=== PATIENT | female | born 1950 | race Caucasian/White ===

== ENCOUNTER → 2016-11-11 | Outpatient (CLI) | payer MEDICARE, OTHER ==
[2016-11-11 07:58] LABS: ALT 27 U/L (9-52); AST 21 U/L (14-36); Alkaline Phosphatase 55 U/L (38-126); Amylase 72 U/L (30-110); Anion Gap 8 mmol/L; Blood Urea Nitrogen 23 mg/dL (7-17); Calcium 10.1 mg/dL (8.4-10.2); Carbon Dioxide 28 mmol/L (22-30); Chloride 103 mmol/L (98-107); Glucose 108 mg/dL (74-99); Non-African American GFR(MDRD) 57 (>60 ml/min/1.73 sqM); Potassium 5.7 mmol/L (3.5-5.1); Sodium 139 mmol/L (137-145); Total Bilirubin 0.7 mg/dL (0.2-1.3); Total Protein 7.7 g/dL (6.3-8.2)
[2016-11-11 08:25] LABS: Basophils % (A) 1 %; CH 29.9; Eosinophils # (A) 0.2 k/uL (0-0.7); Eosinophils % (A) 4 %; HCT 41.8 % (34.0-46.0); HDW 2.37; HGB 13.6 gm/dL (11.4-16.0); Luc # (Auto) 0.07; Luc % (Auto) 2; Lymphocytes # (A) 1.2 k/uL (1.0-4.8); Lymphocytes % (A) 28 %; MCH 29.6 pg (25.0-35.0); MCHC 32.6 g/dL (31.0-37.0); Mean Platelet Volume 8.7; Monocytes # (A) 0.2 k/uL (0-1.0); Monocytes % (A) 6 %; Neutrophils # (A) 2.4 k/uL (1.3-7.7); Neutrophils % (A) 60 %; RDW 12.8 % (11.5-15.5); WBC 4.1 k/uL (3.8-10.6)
--- NOTE | 2016-11-11 08:59 | US ---
EXAMINATION TYPE: US duplex aorta DATE OF EXAM: 11/11/2016 7:54 AM COMPARISON: CLINICAL HISTORY: R09.89 Abdominal pulsatile mass,R10.9,. No HTN, non smoker. EXAM MEASUREMENTS: Abdominal Aorta: Proximal: 2.0 x 2.2 cm Mid: 1.5 x 1.9 cm Distal: 1.5 x 1.8 cm Bifurcation: Right = 1.0 x 1.0 cm Left- 1.2 x 1.0 cm No AAA seen IMPRESSION: No evidence for abdominal aortic aneurysm.
[2016-11-11 11:58] LABS: Erythrocyte Sedimentation Rate 7 mm/hr (0-20)
== END | disposition home or self-care (01) ==
LOC: RADUSWWP 07:21 → EEVIPCON 07:40
PROVIDERS: ATTEND Physician Assistant
DX: R09.89 Other specified symptoms and signs involving the circulatory and respiratory systems (principal); R10.9 Unspecified abdominal pain
CPT/HCPCS: 80053; 82150; 83690; 85025; 85652; 93979

== ENCOUNTER 2016-11-12 22:30 | Emergency (ER) | payer MEDICARE, OTHER ==
[2016-11-13 02:05] LABS: Basophils % (A) 1 %; CHCM 33.7; Eosinophils # (A) 0.1 k/uL (0-0.7); Eosinophils % (A) 3 %; HCT 40.2 % (34.0-46.0); HDW 2.37; HGB 13.5 gm/dL (11.4-16.0); Luc # (Auto) 0.09; Luc % (Auto) 2; Lymphocytes # (A) 1.4 k/uL (1.0-4.8); Lymphocytes % (A) 34 %; MCHC 33.5 g/dL (31.0-37.0); MCV 89.3 fL (80.0-100.0); Mean Platelet Volume 8.9; Monocytes # (A) 0.3 k/uL (0-1.0); Monocytes % (A) 7 %; Neutrophils # (A) 2.2 k/uL (1.3-7.7); Neutrophils % (A) 53 %; RDW 12.6 % (11.5-15.5); WBC 4.2 k/uL (3.8-10.6); WBC (Perox) 4.01
[2016-11-13 02:06] LABS: ALT 30 U/L (9-52); AST 21 U/L (14-36); Alkaline Phosphatase 55 U/L (38-126); Amylase 56 U/L (30-110); Anion Gap 10 mmol/L; Blood Urea Nitrogen 13 mg/dL (7-17); Calcium 10.3 mg/dL (8.4-10.2); Carbon Dioxide 27 mmol/L (22-30); Chloride 102 mmol/L (98-107); Glucose 88 mg/dL (74-99); Non-African American GFR(MDRD) >60 (>60 ml/min/1.73 sqM); Partial Thromboplastin Time 23.8 sec (22.0-30.0); Potassium 4.3 mmol/L (3.5-5.1); Prothrombin Time 10.3 sec (9.0-12.0); Sodium 139 mmol/L (137-145); Total Bilirubin 0.7 mg/dL (0.2-1.3); Total Protein 7.4 g/dL (6.3-8.2)
[2016-11-13 02:08] LABS: Appearance,Urine Clear (Clear); Bilirubin,Urine Negative (Negative); Glucose,Urine (UA) Negative (Negative); Ketones,Urine Trace (Negative); Leukocyte Esterase,Urine Small (Negative); Nitrite,Urine Negative (Negative); Particle Count 835; Protein,Urine Negative (Negative); Specific Gravity,Urine 1.003 (1.001-1.035); UA Billing (MACRO vs. MICRO) MICRO; Urobilinogen,Urine <2.0 mg/dL (<2.0); WBC,Urine <1 /hpf (0-5)
--- NOTE | 2016-11-13 04:09 | CT ---
EXAM: CT ABDOMEN + PELVIS With Contrast DOSE: CTDI is 19.6 mGy and DLP is 703.9 mGy-cm DOSE REPORT: This CT exam was performed using one or more of the following dose reduction techniques: automated exposure control, adjustment of the mA and/or kV according to patient size, and/or use of iterative reconstruction technique. INDICATION: 66-year-old female with abdominal pain. COMPARISON: None. TECHNIQUE: Multiple axial CT images of the abdomen and pelvis with IV contrast material. Reformatted coronal and sagittal images are submitted. FINDINGS: Lung bases: Clear. No pleural effusions. Minimal atelectasis or scarring in the left lower lobe. Solid organs: The liver, spleen, pancreas, adrenal glands, gallbladder, and left kidney are within normal limits. There is prominent right extrarenal pelvis with mild prominence of the collecting system. Ureter is normal caliber. Left renal collecting system is within normal limits. There is some cortical scarring along the superior pole of the right kidney. No renal or ureteral calculi identified. GI tract: The stomach and small intestine are within normal limits. Moderate stool burden throughout the colon. Large intestine is otherwise unremarkable. Visualized portions of the appendix are within normal limits. No free intraperitoneal air fluid. Lymph nodes: No pathologic lymph nodes identified. Vascular: Scant atherosclerotic calcifications of the abdominal aorta and iliac branches. No aneurysm. Musculoskeletal: Degenerative changes of the spine. No aggressive appearing osseous lesion or evidence of compression fracture. Soft tissue structures are within normal limits. Contents: Within normal limits. No pelvic adenopathy, free fluid or inflammatory process. IMPRESSION: 1. No acute abdominopelvic abnormality. 2. Prominence of the right renal collecting system and extrarenal pelvis may relate to chronic UPJ obstruction or parapelvic cysts.
--- NOTE | 2016-11-13 04:34 | ED ---
Abdominal Pain HPI - General Stated Complaint: Diarrhea/Vomiting Source: RN notes reviewed, old records reviewed - History of Present Illness Initial Comments: Patient is a 66 year old female with diarrhea and abdominal pain. Initial chart was started on paper. Disposition completed on computer chart. Review of Systems ROS Statement: Those systems with pertinent positive or pertinent negative responses have been documented in the HPI. ROS Other: All systems not noted in ROS Statement are negative. Course Vital Signs 11/13/16 04:35 Pulse Rate 80 Respiratory 16 Rate Blood Pressure 132/81 O2 Sat by Pulse 96 Oximetry Medical Decision Making - Lab Data Result diagrams: 11/12/16 23:42 11/12/16 23:42 Lab Results 11/12/16 11/12/16 11/12/16 Range/Units 23:42 23:42 23:42 WBC 4.2 (3.8-10.6) k/uL RBC 4.50 (3.80-5.40) m/uL Hgb 13.5 (11.4-16.0) gm/dL Hct 40.2 (34.0-46.0) % MCV 89.3 (80.0-100.0) fL MCH 30.0 (25.0-35.0) pg MCHC 33.5 (31.0-37.0) g/dL RDW 12.6 (11.5-15.5) % Plt Count 207 (150-450) k/uL Neutrophils % 53 % Lymphocytes % 34 % Monocytes % 7 % Eosinophils % 3 % Basophils % 1 % Neutrophils # 2.2 (1.3-7.7) k/uL Lymphocytes # 1.4 (1.0-4.8) k/uL Monocytes # 0.3 (0-1.0) k/uL Eosinophils # 0.1 (0-0.7) k/uL Basophils # 0.0 (0-0.2) k/uL PT 10.3 (9.0-12.0) sec INR 1.0 (<1.1) APTT 23.8 (22.0-30.0) sec Sodium 139 (137-145) mmol/L Potassium 4.3 (3.5-5.1) mmol/L Chloride 102 (98-107) mmol/L Carbon Dioxide 27 (22-30) mmol/L Anion Gap 10 mmol/L BUN 13 (7-17) mg/dL Creatinine 0.90 (0.52-1.04) mg/dL Est GFR (MDRD) Af Amer >60 (>60 ml/min/1.73 sqM) Est GFR (MDRD) Non-Af >60 (>60 ml/min/1.73 sqM) Glucose 88 (74-99) mg/dL Calcium 10.3 H (8.4-10.2) mg/dL Total Bilirubin 0.7 (0.2-1.3) mg/dL AST 21 (14-36) U/L ALT 30 (9-52) U/L Alkaline Phosphatase 55 (38-126) U/L Total Protein 7.4 (6.3-8.2) g/dL Albumin 4.3 (3.5-5.0) g/dL Amylase 56 (30-110) U/L Lipase 163 (23-300) U/L Urine Color Urine Appearance (Clear) Urine pH (5.0-8.0) Ur Specific [place] (1.001-1.035) Urine Protein (Negative) Urine Glucose (UA) (Negative) Urine Ketones (Negative) Urine Blood (Negative) Urine Nitrite (Negative) Urine Bilirubin (Negative) Urine Urobilinogen (<2.0) mg/dL Ur Leukocyte Esterase (Negative) Urine WBC (0-5) /hpf 11/12/16 Range/Units 23:42 WBC (3.8-10.6) k/uL RBC (3.80-5.40) m/uL Hgb (11.4-16.0) gm/dL Hct (34.0-46.0) % MCV (80.0-100.0) fL MCH (25.0-35.0) pg MCHC (31.0-37.0) g/dL RDW (11.5-15.5) % Plt Count (150-450) k/uL Neutrophils % % Lymphocytes % % Monocytes % % Eosinophils % % Basophils % % Neutrophils # (1.3-7.7) k/uL Lymphocytes # (1.0-4.8) k/uL Monocytes # (0-1.0) k/uL Eosinophils # (0-0.7) k/uL Basophils # (0-0.2) k/uL PT (9.0-12.0) sec INR (<1.1) APTT (22.0-30.0) sec Sodium (137-145) mmol/L Potassium (3.5-5.1) mmol/L Chloride (98-107) mmol/L Carbon Dioxide (22-30) mmol/L Anion Gap mmol/L BUN (7-17) mg/dL Creatinine (0.52-1.04) mg/dL Est GFR (MDRD) Af Amer (>60 ml/min/1.73 sqM) Est GFR (MDRD) Non-Af (>60 ml/min/1.73 sqM) Glucose (74-99) mg/dL Calcium (8.4-10.2) mg/dL Total Bilirubin (0.2-1.3) mg/dL AST (14-36) U/L ALT (9-52) U/L Alkaline Phosphatase (38-126) U/L Total Protein (6.3-8.2) g/dL Albumin (3.5-5.0) g/dL Amylase (30-110) U/L Lipase (23-300) U/L Urine Color Colorless Urine Appearance Clear (Clear) Urine pH 6.0 (5.0-8.0) Ur Specific [place] 1.003 (1.001-1.035) Urine Protein Negative (Negative) Urine Glucose (UA) Negative (Negative) Urine Ketones Trace H (Negative) Urine Blood Negative (Negative) Urine Nitrite Negative (Negative) Urine Bilirubin Negative (Negative) Urine Urobilinogen <2.0 (<2.0) mg/dL Ur Leukocyte Esterase Small H (Negative) Urine WBC <1 (0-5) /hpf Disposition Clinical Impression: Diarrhea, Abdominal pain Disposition: HOME SELF-CARE Condition: Good Instructions: Abdominal Pain (ED) Additional Instructions: Patient has follow-up with primary care provider within the next 2-3 days. Clear liquid diet. Patient should have Pepto-Bismol or continues taking Imodium if diarrhea persists. Patient should return the emergency department if any alarming signs or symptoms occur. Again follow-up with a GI specialist if symptoms continue persist as well for possible further testing such as a HIDA scan. Referrals: Pete Dial MD [Primary Care Provider] - 1-2 days Gladys Bobby MD [STAFF PHYSICIAN] - 1-2 days Time of Disposition: 04:33
[2016-11-13 04:41] VITALS: BP 132/81; PULSE 80; RESP 16
--- NOTE | 2016-11-13 10:03 | XR ---
EXAMINATION TYPE: XR chest 2V DATE OF EXAM: 11/13/2016 9:42 AM COMPARISON: NONE TECHNIQUE: PA and lateral views submitted. HISTORY: Chest pain FINDINGS: The lungs are clear and there is no pneumothorax, pleural effusion, or focal pneumonia. Arthropathy of the shoulder and patchy right perihilar changes. Pleural-based thickening. IMPRESSION: 1. Subsegmental changes involving the right perihilar region may be related to rotation rather than i nfiltrate.
--- NOTE | 2016-11-13 10:05 | XR ---
EXAMINATION TYPE: XR KUB DATE OF EXAM: 11/13/2016 9:42 AM COMPARISON: NONE HISTORY: Pain nausea and TECHNIQUE: One view abdominal series FINDINGS: The osseous structures are intact. The bowel gas pattern is nonspecific. Lung bases are clear. Arth ropathy of the shoulders and degenerative change of the spine. IMPRESSION: 1. Nonspecific abdomen.
== END 2016-11-13 04:35 | disposition home or self-care (01) ==
LOC: EC 22:30
DX: R10.9 Unspecified abdominal pain (principal); R19.7 Diarrhea, unspecified; R11.10 Vomiting, unspecified
CPT/HCPCS: 36415; 80053; 82150; 83690; 85025; 85610; 85730; 81001; 71020; 74000; 74177; 99284; Q9967

== ENCOUNTER 2018-02-06 12:15 | Day surgery (SDC) | payer MEDICARE, OTHER ==
[2018-02-05 11:16] VITALS: BMI 24.5
[~2018-02-06 12:15] MED LIST: LACTATED RINGERS 1,000 ML IV SCH
[2018-02-06 12:39] VITALS: RESP 16; TEMP 97.3
[2018-02-06] MEDS ORDERED: LIDOCAINE 1% 20 ML VIAL (10MG/ML) FOR IV START INTRADERMA ONE (12:49)
[2018-02-06] MEDS ORDERED: PROPOFOL 10 MG/ML 20 ML VIAL IV ONE (12:58)
[2018-02-06] MEDS ORDERED: fentaNYL (PF) 50 MCG/ML 2 ML AMP ONE (12:58)
[2018-02-06] MEDS ORDERED: MIDAZOLAM 2 MG/2 ML VIAL ONE (12:58)
--- NOTE | 2018-02-06 13:50 | P.PCN ---
Date of Procedure: 02/06/18 Procedure(s) Performed: Procedures: 1. Esophagogastroduodenoscopy and biopsy. 2. Total colonoscopy. Preoperative diagnosis: Epigastric pain, weight loss and change in bowel habits. Postoperative diagnosis: 1. Mild antral gastritis. 2. Antral polyp. 3. Sigmoid diverticulosis. 4. Multiple biopsies obtained from the duodenum, antrum , antral polyp and esophagus. Preparation: HalfLytely prep. Sedation: Was provided by anesthesia. Brief clinical history: The patient is a 67-year-old female who was recently hospitalized for bloody diarrhea of which she fully recuperated. The patient has history of 40 pound weight loss over the last year as well as epigastric pain. She never had prior colonoscopy. She has mental disadvantageous and her caregiver was concerned and supportive of having her undergo upper endoscopy and colonoscopy. Procedure: With the patient on her left lateral decubitus position and after informed consent and adequate sedation, I passed the Olympus-GIF 160 video upper endoscope through the cricopharyngeus down the esophagus. GE junction was around 41 cm from the incisors and there was no obvious hiatal hernia. The esophagus did not show any evidence of esophagitis or complicated reflux disease. The endoscope was then passed into the stomach which was insufflated with air and inspected in detail including the retroflex view in the cardia. There was some mottling and erythema in the antrum but no ulcers or bleeding. In the antrum, just in the immediate prepyloric area, there was a 1-1.5 cm benign-appearing polyp which was not causing any obstruction to the gastric outlet. Pyloric channel, duodenal bulb, post bulbar area and descending duodenum appeared within normal limits. Because of her symptoms, I obtained biopsies from the duodenum, antrum, antral polyp as well as from the esophagus before the endoscope was withdrawn and I then proceeded with the colonoscopy. Perianal area did not show any fissures or fistulas. There were no masses felt on digital rectal examination. The Olympus CFQ 160L video colonoscope was then inserted in the rectum in the usual fashion and advanced to the cecum. There were a few diverticular orifices seen scattered in the sigmoid but there was no evidence of acute diverticulitis or strictures. No polyps or tumors were seen or any other pathology. I retroflexed the endoscope in the rectum before the endoscope was withdrawn. The patient tolerated the procedure well. Plan: The patient was reassured and I discussed with her caregiver. Will await biopsy results and make further plans based on her course and biopsy results. I will keep you updated on her progress.
[2018-02-06 14:04] VITALS: BP 129/84; PULSE 59
== END 2018-02-06 15:01 | disposition home or self-care (01) ==
LOC: ORWHC2ENDO 12:15
DX: K31.7 Polyp of stomach and duodenum (principal); K29.50 Unspecified chronic gastritis without bleeding; K20.9 Esophagitis, unspecified; K57.30 Diverticulosis of large intestine without perforation or abscess without bleeding; F79 Unspecified intellectual disabilities; Z79.82 Long term (current) use of aspirin; Z79.899 Other long term (current) drug therapy
CPT/HCPCS: 88305; 45378; 43239; J2250; J3010; J2704

== ENCOUNTER → 2019-03-08 | Outpatient (CLI) | payer MEDICARE, OTHER ==
--- NOTE | 2019-03-11 10:29 | MM ---
Reason for exam: screening (asymptomatic). Last mammogram was performed 7 years and 11 months ago. History: Patient is postmenopausal and is nulliparous. Physical Findings: A clinical breast exam by your physician is recommended on an annual basis and results should be correlated with mammographic findings. MG Screening Mammo w CAD Bilateral CC and MLO view(s) were taken. Prior study comparison: April 18, 2011, bilateral digital screening mammo w/CAD. September 16, 2002, bilateral screening mammogram. There are scattered fibroglandular densities. There is no discrete abnormality. No significant changes when compared with prior studies. ASSESSMENT: Negative, BI-RAD 1 RECOMMENDATION: Routine screening mammogram of both breasts in 1 year.
== END | disposition home or self-care (01) ==
LOC: RADMAMWWP 14:07
PROVIDERS: ATTEND Family Medicine
DX: Z12.31 Encounter for screening mammogram for malignant neoplasm of breast (principal)
CPT/HCPCS: 77067

== ENCOUNTER 2020-02-11 11:40 | Emergency (ER) | payer MEDICARE, OTHER ==
[2020-02-11 11:47] VITALS: TEMP 97.7
[2020-02-11] MEDS ORDERED: SODIUM CHLORIDE 0.9% 1,000 ML IV STA (12:04)
[2020-02-11] MEDS ORDERED: ONDANSETRON 4 MG/2 ML VIAL IVP STA (12:04)
--- NOTE | 2020-02-11 12:09 | ED ---
General Adult HPI - General Chief complaint: Nausea/Vomiting/Diarrhea Stated complaint: Dr khan Time Seen by Provider: 02/11/20 11:53 Source: patient, RN notes reviewed, old records reviewed Mode of arrival: wheelchair Limitations: no limitations - History of Present Illness Initial comments: Patient is a 69-year-old female presents today with her mother for evaluation for nausea, diarrhea, vomiting abdominal pain and dizziness. She's been having diarrhea and vomiting for the past few days. Patient was sent for further evaluation by her PCP and possible CT scans. Patient denies any recorded fever. She reports the pain seems to be more in the upper abdomen. She denies any bloody stools or bloody emesis.. Mother reports hx of IBS and believes this is a flare up. They have been doing a bland diet for the past 3 days. - Related Data Home Medications Medication Instructions Recorded Confirmed ALPRAZolam [Xanax] 0.5 mg PO BID@0800,1200 02/05/18 02/11/20 Aspirin 81 mg PO DAILY 02/05/18 02/11/20 Dicyclomine [Bentyl] 20 mg PO AC-TID 02/05/18 02/11/20 Sertraline HCl [Zoloft] 50 mg PO DAILY 02/05/18 02/11/20 lisinopriL [Zestril] 5 mg PO DAILY 02/05/18 02/11/20 risperiDONE [RisperDAL] 1 mg PO DAILY 02/05/18 02/11/20 Cholecalciferol (Vitamin D3) 125 mcg PO DAILY 02/11/20 02/11/20 [Vitamin D3] Loperamide HCl [Imodium A-D] 2 - 4 mg PO QID PRN 02/11/20 02/11/20 Multivit-Min/Iron/Folic/Lutein 1 tab PO DAILY 02/11/20 02/11/20 [Centrum Silver Women Tablet] Omeprazole 20 mg PO BID 02/11/20 02/11/20 Ondansetron [Zofran] 4 mg PO AC-BID PRN 02/11/20 02/11/20 Simvastatin [Zocor] 10 mg PO HS 02/11/20 02/11/20 risperiDONE [RisperDAL] 0.5 mg PO DAILY 02/11/20 02/11/20 risperiDONE [RisperDAL] 2 mg PO HS 02/11/20 02/11/20 Previous Rx's Medication Instructions Recorded Ondansetron Odt [Zofran Odt] 4 mg PO Q8HR PRN #12 tab 02/11/20 Allergies Allergy/AdvReac Type Severity Reaction Status Date / Time No Known Allergies Allergy Verified 02/11/20 14:57 Review of Systems ROS Statement: Those systems with pertinent positive or pertinent negative responses have been documented in the HPI. ROS Other: All systems not noted in ROS Statement are negative. Past Medical History Past Medical History: No Reported History Additional Past Medical History / Comment(s): IBS History of Any Multi-Drug Resistant Organisms: None Reported Past Surgical History: No Surgical Hx Reported Additional Past Surgical History / Comment(s): Never has had anesthesia. Additional Past Anesthesia/Blood Transfusion Reaction / Comment(s): Has never had anesthesia. Past Psychological History: Depression Past Alcohol Use History: None Reported Past Drug Use History: None Reported - Past Family History Mother Additional Family Medical History / Comment(s): Family history unknown. General Exam - General Exam Comments Initial Comments: 69-year-old female. Alert and oriented. Limitations: no limitations General appearance: alert, in no apparent distress Head exam: Present: atraumatic, normocephalic, normal inspection Eye exam: Present: normal appearance, PERRL, EOMI. Absent: scleral icterus, conjunctival injection, periorbital swelling ENT exam: Present: normal exam, mucous membranes moist Neck exam: Present: normal inspection. Absent: tenderness, meningismus, lymphadenopathy Respiratory exam: Present: normal lung sounds bilaterally. Absent: respiratory distress, wheezes, rales, rhonchi, stridor Cardiovascular Exam: Present: regular rate, normal rhythm, normal heart sounds. Absent: systolic murmur, diastolic murmur, rubs, gallop, clicks GI/Abdominal exam: Present: soft, tenderness ( minimal Right upper quadrant tenderness), normal bowel sounds. Absent: distended, guarding, rebound, rigid Extremities exam: Present: normal inspection, full ROM, normal capillary refill. Absent: tenderness, pedal edema, joint swelling, calf tenderness Back exam: Present: normal inspection Neurological exam: Present: alert Psychiatric exam: Present: normal affect, normal mood Course Vital Signs 02/11/20 02/11/20 11:43 15:27 Temperature 97.7 F Pulse Rate 80 68 Respiratory 18 16 Rate Blood Pressure 126/81 139/79 O2 Sat by Pulse 98 100 Oximetry Medical Decision Making - Medical Decision Making 69-year-old female history of developmental delay presents emergency department today for concern for nausea vomiting diarrhea for the past few weeks. Should minimal upper tenderness. Patient has a history of IBS. Sent by her PCP for further evaluation. Patient's labwork was reviewed and unremarkable. Due to being sent by PCP and family's request CT was completed. There is evidence of chronic chronic UPJ obstruction causing hydronephrosis. This is similar to previous exams. His evidence of a lesion over the pancreas. Before family of this and will need to follow-up with PCP for possible MRI. Amylase and lipase are normal. Patient was reevaluated after receiving Protonix and Toradol and states she is feeling much better. She appears well and smiling in no distress. I discussed with the family to follow-up with GI specialty's as well.incidental finding of osteonecrosis on right hip. Patient is ambulatory denies any right hip pain. Discussed return parameters. - Lab Data Result diagrams: 02/11/20 12:28 02/11/20 12:28 Lab Results 02/11/20 02/11/20 02/11/20 Range/Units 12:28 12:28 12:28 WBC 4.6 (3.8-10.6) k/uL RBC 4.52 (3.80-5.40) m/uL Hgb 13.1 (11.4-16.0) gm/dL Hct 40.2 (34.0-46.0) % MCV 89.0 (80.0-100.0) fL MCH 29.0 (25.0-35.0) pg MCHC 32.6 (31.0-37.0) g/dL RDW 12.6 (11.5-15.5) % Plt Count 204 (150-450) k/uL Neutrophils % 82 % Lymphocytes % 13 % Monocytes % 3 % Eosinophils % 0 % Basophils % 1 % Neutrophils # 3.8 (1.3-7.7) k/uL Lymphocytes # 0.6 L (1.0-4.8) k/uL Monocytes # 0.1 (0-1.0) k/uL Eosinophils # 0.0 (0-0.7) k/uL Basophils # 0.0 (0-0.2) k/uL Sodium 130 L (137-145) mmol/L Potassium 5.0 (3.5-5.1) mmol/L Chloride 94 L (98-107) mmol/L Carbon Dioxide 26 (22-30) mmol/L Anion Gap 10 mmol/L BUN 17 (7-17) mg/dL Creatinine 0.82 (0.52-1.04) mg/dL Est GFR (CKD-EPI)AfAm 86 (>60 ml/min/1.73 sqM) Est GFR (CKD-EPI)NonAf 74 (>60 ml/min/1.73 sqM) Glucose 80 (74-99) mg/dL Plasma Lactic Acid Ze 1.0 (0.7-2.0) mmol/L Calcium 10.0 (8.4-10.2) mg/dL Total Bilirubin 0.7 (0.2-1.3) mg/dL AST 32 (14-36) U/L ALT 23 (4-34) U/L Alkaline Phosphatase 51 (38-126) U/L Total Protein 7.2 (6.3-8.2) g/dL Albumin 4.5 (3.5-5.0) g/dL Amylase 45 (30-110) U/L Lipase 124 (23-300) U/L Urine Color Urine Appearance (Clear) Urine pH (5.0-8.0) Ur Specific [place] (1.001-1.035) Urine Protein (Negative) Urine Glucose (UA) (Negative) Urine Ketones (Negative) Urine Blood (Negative) Urine Nitrite (Negative) Urine Bilirubin (Negative) Urine Urobilinogen (<2.0) mg/dL Ur Leukocyte Esterase (Negative) 02/11/20 Range/Units 14:56 WBC (3.8-10.6) k/uL RBC (3.80-5.40) m/uL Hgb (11.4-16.0) gm/dL Hct (34.0-46.0) % MCV (80.0-100.0) fL MCH (25.0-35.0) pg MCHC (31.0-37.0) g/dL RDW (11.5-15.5) % Plt Count (150-450) k/uL Neutrophils % % Lymphocytes % % Monocytes % % Eosinophils % % Basophils % % Neutrophils # (1.3-7.7) k/uL Lymphocytes # (1.0-4.8) k/uL Monocytes # (0-1.0) k/uL Eosinophils # (0-0.7) k/uL Basophils # (0-0.2) k/uL Sodium (137-145) mmol/L Potassium (3.5-5.1) mmol/L Chloride (98-107) mmol/L Carbon Dioxide (22-30) mmol/L Anion Gap mmol/L BUN (7-17) mg/dL Creatinine (0.52-1.04) mg/dL Est GFR (CKD-EPI)AfAm (>60 ml/min/1.73 sqM) Est GFR (CKD-EPI)NonAf (>60 ml/min/1.73 sqM) Glucose (74-99) mg/dL Plasma Lactic Acid Ze (0.7-2.0) mmol/L Calcium (8.4-10.2) mg/dL Total Bilirubin (0.2-1.3) mg/dL AST (14-36) U/L ALT (4-34) U/L Alkaline Phosphatase (38-126) U/L Total Protein (6.3-8.2) g/dL Albumin (3.5-5.0) g/dL Amylase (30-110) U/L Lipase (23-300) U/L Urine Color Light Yellow Urine Appearance Clear (Clear) Urine pH 5.5 (5.0-8.0) Ur Specific [place] 1.005 (1.001-1.035) Urine Protein Negative (Negative) Urine Glucose (UA) Negative (Negative) Urine Ketones 1+ H (Negative) Urine Blood Negative (Negative) Urine Nitrite Negative (Negative) Urine Bilirubin Negative (Negative) Urine Urobilinogen <2.0 (<2.0) mg/dL Ur Leukocyte Esterase Negative (Negative) - Radiology Data Radiology results: report reviewed Severe right hydronephrosis which is noted on prior exam. Findings on basis of congenital UPJ obstruction. Correlating for osteonecrosis of the right hip. There is low density lesion involving the tail of the pancreas measuring 1 cm. MRI recommended to exclude neoplasm. Disposition Clinical Impression: Congenital hydronephrosis, Anomaly of pancreas, Nausea & vomiting Disposition: HOME SELF-CARE Condition: Good Instructions (If sedation given, give patient instructions): Acute Nausea and Vomiting (ED) Additional Instructions: Patient advised to follow-up with primary care physician and GI. Continue bland diet and use the nausea medication under the tongue. Recommended return to emergency department if any alarming signs or symptoms occur. Prescriptions: Ondansetron Odt [Zofran Odt] 4 mg PO Q8HR PRN #12 tab PRN Reason: Nausea Is patient prescribed a controlled substance at d/c from ED?: No Referrals: Pete Dial MD [Primary Care Provider] - 1-2 days Gladys Bobby MD [STAFF PHYSICIAN] - 1-2 days Time of Disposition: 15:20
[2020-02-11 12:55] LABS: Albumin 4.5 g/dL (3.5-5.0); Total Bilirubin 0.7 mg/dL (0.2-1.3); Total Protein 7.2 g/dL (6.3-8.2)
[2020-02-11 12:57] LABS: Basophils % (A) 1 %; Eosinophils % (A) 0 %; HCT 40.2 % (34.0-46.0); HGB 13.1 gm/dL (11.4-16.0); Lymphocytes # (A) 0.6 k/uL (1.0-4.8); Lymphocytes % (A) 13 %; MCHC 32.6 g/dL (31.0-37.0); Mean Platelet Volume 8.7; Monocytes # (A) 0.1 k/uL (0-1.0); Monocytes % (A) 3 %; Neutrophils # (A) 3.8 k/uL (1.3-7.7); Neutrophils % (A) 82 %; Platelet Count 204 k/uL (150-450); RBC 4.52 m/uL (3.80-5.40); RDW 12.6 % (11.5-15.5); WBC 4.6 k/uL (3.8-10.6)
[2020-02-11] MEDS ORDERED: KETOROLAC 30 MG/ML 1 ML VIAL IVP STA (13:28)
[2020-02-11] MEDS ORDERED: ACETAMINOPHEN TAB 500 MG TAB PO STA (13:29)
[2020-02-11] MEDS ORDERED: SODIUM CHLORIDE 0.9% 1,000 ML IV SCH (13:30)
--- NOTE | 2020-02-11 15:01 | CT ---
EXAMINATION TYPE: CT abdomen pelvis w con DATE OF EXAM: 02/11/2020 COMPARISON: 11/13/2016 HISTORY: Nausea, abdominal pain. CT DLP: 650.4 mGycm Automated exposure control for dose reduction was used. CONTRAST: CT scan of the abdomen pelvis is performed with IV Contrast, patient injected with 100 mL of Isovue 3 00. FINDINGS- LUNG BASES-heart is enlarged. Small amount of pericardial fluid noted. Linear changes at the lung bas e are most typical of atelectasis.. LIVER/GB- No gross abnormality is appreciated. PANCREAS-1 cm low density lesion involving the tail the pancreas too small to characterize, could be cystic. MRI recommended. SPLEEN- No gross abnormality is seen. ADRENALS- No gross abnormality is seen. KIDNEYS/BLADDER-stable prominence of the right collecting system may been the basis of a congenital U PJ obstruction. Extrarenal pelvis on the left suspected. BOWEL-bowel gas pattern nonspecific with no diagnostic evidence of obstruction. Appendix of normal ca liber. LYMPH NODES- No greater than 1cm abdominal or pelvic lymph nodes areappreciated. OSSEOUS STRUCTURES-hypertrophic and degenerative change of the spine with grade 1 anterolisthesis L4 and L5. Multilevel facet arthropathy and foraminal encroachment. Canal stenosis L4-L5 suspected. Arth ropathy of the hips. Benign cystic appearance the right femoral head. Sclerosis could be associated w ith osteonecrosis. Bone island involving the left femoral head.. OTHER- aorta of normal caliber. No free fluid or free air. IMPRESSION- 1. Severe right hydronephrosis which is also noted on the prior exam. Findings could been the basis o f a congenital UPJ obstruction. 2. Correlate for osteonecrosis of the right hip. 3. There is a low density lesion involving the tail of the pancreas measuring 1 cm. MRI recommended t o exclude neoplasm.
[2020-02-11 15:13] LABS: Appearance,Urine Clear (Clear); Bilirubin,Urine Negative (Negative); Blood,Urine Negative (Negative); Color,Urine Light Yellow; Glucose,Urine (UA) Negative (Negative); Ketones,Urine 1+ (Negative); Leukocyte Esterase,Urine Negative (Negative); Nitrite,Urine Negative (Negative); PH, Urine 5.5 (5.0-8.0); Protein,Urine Negative (Negative); Specific Gravity,Urine 1.005 (1.001-1.035); Urobilinogen,Urine <2.0 mg/dL (<2.0)
[2020-02-11 15:30] VITALS: BP 139/79; PULSE 68; RESP 16
== END 2020-02-11 15:33 | disposition home or self-care (01) ==
LOC: EC 11:40
DX: Q45.3 Other congenital malformations of pancreas and pancreatic duct (principal); Q62.0 Congenital hydronephrosis; K58.9 Irritable bowel syndrome, unspecified; F32.9 Major depressive disorder, single episode, unspecified; Z79.899 Other long term (current) drug therapy; Z79.82 Long term (current) use of aspirin
CPT/HCPCS: 36415; 80053; 82150; 83605; 83690; 85025; 81003; 74177; 99284; 96374; 96375; 96361; J2405; J1885; Q9967

== ENCOUNTER → 2020-02-27 | Outpatient (CLI) | payer MEDICARE, OTHER ==
[~2020-02-27] MED LIST changes: +FUROSEMIDE 10 MG/ML 2 ML VIAL IV ONE; -LACTATED RINGERS 1,000 ML IV SCH
--- NOTE | 2020-02-27 16:24 | NM ---
EXAMINATION TYPE: NM Lasix renogram DATE OF EXAM: 02/27/2020 COMPARISON: Correlation CT 02/11/2020 HISTORY: 69-year-old female N13.30, hydronephrosis Technique: Following administration of 10.1 mCi Tc 99m MAG3 with 20mg Lasix administered at the 8 min josesito time point. Immediate images post injection with imaging carried out to 30 minutes. FINDINGS: Left: 49.6 %. Right: 50.4 %. Max renal flow left: 11.8 minutes. Max renal flow right: 11.8 minutes. Satisfactory accumulation of radiotracer within both renal collecting systems. After the administrati on of Lasix at the 8 minute time point, there is gradual excretion from both collecting systems. The right renal collecting system is larger and residual tracer remains in the collecting systems at the end of the 30 minute time point. T 1/2 left: 20.1 minutes (12 minutes if taken from the 8 minute Lasix administration). T 1/2 right: T 1/2 is not reached within the 30 minutes of imaging. IMPRESSION: 1. With Lasix administration, the T 1/2 of the right kidney is not reached within the 30 minutes of i maging. Findings suggest a relative obstruction, possibly a UPJ obstruction. 2. T 1/2 of the left kidney is 12 minutes if taken from the 8 minute time point of Lasix administrati on. This (10 to 20 minute range) would be equivocal for obstruction.
== END | disposition home or self-care (01) ==
LOC: RADNMMAIN 13:59
PROVIDERS: ATTEND Urology
DX: N13.30 Unspecified hydronephrosis (principal)
CPT/HCPCS: 78708; A9562

== ENCOUNTER → 2020-03-13 | Outpatient (CLI) | payer MEDICARE, OTHER ==
--- NOTE | 2020-03-14 03:55 | MR ---
EXAMINATION TYPE: MR pancreas wo/w con DATE OF EXAM: 03/13/2020 COMPARISON: HISTORY: Abdominal pain, mass CONTRAST: Standard multiplanar, multisequence MRI departmental protocol utilizing 6.5 mL intravenous Gadavist g adolinium contrast. Liver has normal size and contour. The bile ducts are not dilated. Gallbladder appears normal. There is right-sided hydronephrosis. There is some prominence also of the left renal pelvis. Pancreatic duct appears normal. There is 12 x 10 mm oval-shaped area of fluid signal in the anterior aspect of the tail of the pancreas. This has low signal on T1 and high signal on T2 images. Contrast images show no enhancement. The edges are sharp. Stomach is intact. There is no evidence of pleural effusion. There is no sign of retroperitoneal shahrzad opathy. There is no sign of ascites. IMPRESSION: Oval-shaped cystic lesion in the tail of the pancreas unchanged compared to CT scan of 02/11/2020 and consistent with a pseudocyst. No evidence of solid pancreatic mass. Bilateral hydronephrosis that is worse on the right side and unchanged compared to old CT scan. No si gnificant renal atrophy.
== END | disposition home or self-care (01) ==
LOC: RADMRIMAIN 20:57
PROVIDERS: ATTEND Family Medicine
DX: K86.89 Other specified diseases of pancreas (principal); N13.30 Unspecified hydronephrosis
CPT/HCPCS: 74183; A9585

== ENCOUNTER → 2020-03-17 | Outpatient (CLI) | payer MEDICARE, OTHER ==
--- NOTE | 2020-03-17 11:02 | NM ---
EXAMINATION TYPE: NM hepatobiliary w EF DATE OF EXAM: 03/17/2020 COMPARISON: Correlation MRI 03/13/2020 HISTORY: 69-year-old female R10.11, right upper quadrant pain. TECHNIQUE: After the intravenous administration of 4.71 mCi Tc 99m Mebrofenin hepatobiliary scintigra phy is performed. Immediate images post injection. FINDINGS: There is satisfactory initial accumulation of tracer by the liver. The gallbladder is visualized wit hin minutes. The small bowel activity is noted after oral and short administration after 60 minutes. At one hour 8 ounces of oral ensure plus is given to mimic CCK and gallbladder ejection fraction is calculated at 29 %, diminished. IMPRESSION: No scintigraphic evidence for acute cholecystitis. However, there is diminished gallbladder ejection fraction which can be seen with either chronic cholecystitis or biliary dyskinesia.
== END | disposition home or self-care (01) ==
LOC: RADNMMAIN 07:11
PROVIDERS: ATTEND Internal Medicine Gastroenterology
DX: K82.8 Other specified diseases of gallbladder (principal)
CPT/HCPCS: 78226; A9537

== ENCOUNTER 2020-04-15 07:44 | Day surgery (SDC) | payer MEDICARE, OTHER ==
[2020-04-13 15:05] VITALS: BMI 23.2
[~2020-04-15 07:44] MED LIST changes: +ACETAMINOPHEN TAB 500 MG TAB PO ONE; +DEXAMETHASONE SOD PHOSPHATE 10 MG/ML 1 ML VIAL IV ONE; -FUROSEMIDE 10 MG/ML 2 ML VIAL IV ONE; +HEPARIN SODIUM,PORCINE 5,000 UNIT/ML 1 ML VIAL SQ ONE; +HYDROmorphone 0.5 MG/0.5 ML SYRINGE IVP PRN; +LIDOCAINE 1% (10MG/ML) FOR IV START INTRADERMA PRN; +MIDAZOLAM 2 MG/2 ML VIAL IV PRN; +ONDANSETRON 4 MG/2 ML VIAL IVP ONE
[2020-04-15 08:06] VITALS: RESP 16
[2020-04-15] MEDS: LACTATED RINGERS 1,000 ML IV SCH ×2 (08:18→10:42)
--- NOTE | 2020-04-15 08:32 | P.GSHP ---
History of Present Illness H&P Date: 04/15/20 Chief Complaint: Right upper quadrant pain This is a 69-year-old female presents today for laparoscopic cholestatic. Patient with right quadrant pain. A recent HIDA scan shows a diminished ejection fraction consistent with biliary dyskinesia and chronic cholecystitis. Past Medical History Past Medical History: GERD/Reflux, Hyperlipidemia, Hypertension Additional Past Medical History / Comment(s): IBS, mentally challenged has a 24 hour caregiver. History of Any Multi-Drug Resistant Organisms: None Reported Past Surgical History: No Surgical Hx Reported Additional Past Surgical History / Comment(s): EGD Past Anesthesia/Blood Transfusion Reactions: No Reported Reaction Additional Past Anesthesia/Blood Transfusion Reaction / Comment(s): Has never had anesthesia. Smoking Status: Never smoker - Past Family History Mother Additional Family Medical History / Comment(s): Family history unknown. Medications and Allergies Home Medications Medication Instructions Recorded Confirmed Type ALPRAZolam [Xanax] 0.5 mg PO BID@0800,1200 02/05/18 04/13/20 History Aspirin 81 mg PO DAILY 02/05/18 04/13/20 History Dicyclomine [Bentyl] 20 mg PO AC-TID 02/05/18 04/13/20 History Sertraline HCl [Zoloft] 50 mg PO DAILY 02/05/18 04/13/20 History lisinopriL [Zestril] 5 mg PO DAILY 02/05/18 04/13/20 History Cholecalciferol (Vitamin D3) 125 mcg PO DAILY 02/11/20 04/13/20 History [Vitamin D3] Multivit-Min/Iron/Folic/Lutein 1 tab PO DAILY 02/11/20 04/13/20 History [Centrum Silver Women Tablet] Omeprazole 20 mg PO BID 02/11/20 04/13/20 History Ondansetron Odt [Zofran Odt] 4 mg PO Q8HR PRN #12 tab 02/11/20 04/13/20 Rx Simvastatin [Zocor] 10 mg PO HS 02/11/20 04/13/20 History risperiDONE [RisperDAL] 2 mg PO HS 02/11/20 04/13/20 History risperiDONE [RisperDAL] 1.5 mg PO DAILY 04/13/20 04/13/20 History Allergies Allergy/AdvReac Type Severity Reaction Status Date / Time No Known Allergies Allergy Verified 04/15/20 07:57 Surgical - Exam Vital Signs Temp Pulse Resp BP Pulse Ox 97.8 F 88 16 128/70 95 04/15/20 08:04 04/15/20 08:04 04/15/20 08:04 04/15/20 08:04 04/15/20 08:04 - General well developed, well nourished, no distress - Eyes PERRL - ENT normal pinna - Neck no masses - Respiratory normal expansion - Cardiovascular Rhythm: regular - Abdomen Abdomen: soft, non tender Assessment and Plan Assessment: Chronic cholecystitis We'll perform laparoscopic cholecystectomy
[2020-04-15] MEDS ORDERED: SUCCINYLCHOLINE CHLORIDE 100 MG/5 ML SYR IV ONE (08:45)
[2020-04-15] MEDS ORDERED: PROPOFOL 10 MG/ML 20 ML VIAL IV ONE (08:45)
[2020-04-15] MEDS ORDERED: KETOROLAC 15 MG/ML 1 ML VIAL ONE (08:45)
[2020-04-15] MEDS ORDERED: fentaNYL (PF) 50 MCG/ML 2 ML AMP ONE (08:45)
[2020-04-15] MEDS ORDERED: NEOSTIGMINE 1 MG/ML 10 ML VIAL ONE (08:45)
[2020-04-15] MEDS ORDERED: GLYCOPYRROLATE 0.2 MG/ML 2 ML VIAL ONE (08:45)
[2020-04-15] MEDS ORDERED: LIDOCAINE 1% INJ 10MG/ML (20 ML MDV) ONE (08:45)
[2020-04-15] MEDS ORDERED: ROCURONIUM 10 MG/ML (10 ML VIAL) IV ONE (08:45)
[2020-04-15] MEDS ORDERED: BUPIVACAINE (PF) 0.25% 30 ML VIAL SQ ONE (09:02)
--- NOTE | 2020-04-15 09:39 | P.OP ---
Date of Procedure: 04/15/20 Preoperative Diagnosis: Chronic cholecystitis Postoperative Diagnosis: Chronic cholecystitis Procedure(s) Performed: Laparoscopic cholecystectomy Anesthesia: OSCAR Surgeon: Abner Lynn Estimated Blood Loss (ml): 5 Pathology: other (Gallbladder) Condition: stable Disposition: PACU Description of Procedure: The patient was placed on the operating table. The patient received a general endotracheal tube anesthesia. The patients abdomen was prepped and draped in the usual sterile fashion. Through an infraumbilical stab incision, the fascia of the anterior abdominal wall was grasped with a pair of Kochers and then the Veress needle was placed in the peritoneal cavity. Position of the Veress needle was confirmed with positive drop test. The abdomen was then insufflated. After adequate insufflation, the 10 mm trocar was placed in the peritoneal cavity. Following this the laparoscope was placed in the peritoneal cavity. The patient was placed in the head-up, right side up position and then a 5 mm trocar was placed in the right lateral and right subcostal position under direct visualization. A 8 mm trocar was placed in the epigastric position. The gallbladder was grasped in the fundus and infundibulum. Traction on the gallbladder was placed in the lateral and the cephalad positions. The triangle of Calot was visualized.. The cystic duct was bluntly dissected until the union of the cystic duct and common bile duct was seen. A critical view of safety was achieved. The cystic duct was then divided and sealed with the Harmonic scissors. A PDS Endoloop was then placed throughout the cystic duct stump. The cystic artery divided and sealed with the Harmonic scissors. The gallbladder was then removed from the liver bed using Harmonic scissors. The gallbladder was then extracted through the epigastric port site. Operative field was checked for any bleeding spots and Harmonic scissors was used to coagulate the liver bed. The abdomen was irrigated. The trocars were removed. The skin was closed using interrupted 3-0 Vicryl suture. Dermabond dressing were applied. The patient tolerated the procedure well.
[2020-04-15 09:49] VITALS: TEMP 98.1
[2020-04-15 11:41] VITALS: BP 117/74; PULSE 77
== END 2020-04-15 12:00 | disposition home or self-care (01) ==
LOC: OR 07:44
PROVIDERS: ATTEND Surgery
DX: K81.1 Chronic cholecystitis (principal); K21.9 Gastro-esophageal reflux disease without esophagitis; E78.5 Hyperlipidemia, unspecified; I10 Essential (primary) hypertension; K58.9 Irritable bowel syndrome, unspecified; F99 Mental disorder, not otherwise specified; Z98.890 Other specified postprocedural states; Z97.2 Presence of dental prosthetic device (complete) (partial); Z79.82 Long term (current) use of aspirin; Z79.899 Other long term (current) drug therapy
CPT/HCPCS: 47562; 88304; J1644; J1100; J2710; J0690; J2405; J2001; J3010; J1885; J0330; J2704

== ENCOUNTER → 2021-04-14 | Outpatient (CLI) | payer MEDICARE, OTHER ==
[2021-04-14 19:38] LABS: HCT 38.2 % (37.2-46.3); HGB 12.1 g/dL (12.0-15.0); MCH 29.4 pg (27.0-32.0); MCHC 31.7 g/dL (32.0-37.0); MCV 92.9 fL (80.0-97.0); Mean Platelet Volume 11.2 fL (9.5-12.2); Platelet Count 229 X 10*3/uL (140-440); RBC 4.11 X 10*6/uL (4.10-5.20); RDW 12.4 % (11.5-14.5); WBC 3.39 X 10*3/uL (4.50-10.00)
[2021-04-15 04:49] LABS: African American GFR (CKD) 87.8 (60.0-200.0); Albumin 4.5 g/dL (3.8-4.9); Albumin/Globulin Ratio 1.8 (1.60-3.17); Anion Gap 12.7 mmol/L (4.00-12.00); BUN/Creat Ratio 28.13 Ratio (12.00-20.00); Blood Urea Nitrogen 22.5 mg/dL (9.0-27.0); Calcium 10.2 mg/dL (8.7-10.3); Carbon Dioxide 24.3 mmol/L (21.6-31.8); Globulin 2.5 g/dL (1.6-3.3); Non-African American GFR(CKD) 75.8 (60.0-200.0); Phosphorus 3.3 mg/dL (2.4-5.1); Potassium 5.1 mmol/L (3.5-5.5); Total Bilirubin 0.3 mg/dL (0.30-1.20)
== END | disposition home or self-care (01) ==
LOC: LABWHC1 11:48
PROVIDERS: ATTEND Family Medicine
DX: K86.1 Other chronic pancreatitis (principal); N18.9 Chronic kidney disease, unspecified
CPT/HCPCS: 36415; 80053; 82150; 82550; 83690; 83970; 84100; 85027

== ENCOUNTER → 2024-02-01 | Outpatient (CLI) | payer MEDICARE, OTHER ==
--- NOTE | 2024-02-01 15:01 | CT ---
EXAMINATION TYPE: CT hip RT wo con DATE OF EXAM: 02/01/2024 COMPARISON: 02/11/2020 HISTORY: 73-year-old female S72.111A, Right hip pain, osteoarthritis TECHNIQUE: Contiguous axial scanning of the right hip without IV contrast. Coronal and sagittal recon structions performed. 3-D reconstructions generated on a dedicated independent workstation. CT DLP: 262.3 mGycm Automated exposure control for dose reduction was used. FINDINGS: There is end-stage [id number] degenerative change at the right hip with significant axial joint spa ce loss and complete loss of posterior joint space. Questionable bony ankylosis posteriorly. Extensiv e subchondral sclerosis, marginal spurring, and subchondral cystic changes present. No sizable joint effusion. Mild to moderate degenerative change right SI joint. No acute fracture, subluxation, dislocation is seen. IMPRESSION: 1. SEVERE, [id number] RIGHT HIP OA. COMPLETE LOSS OF POSTERIOR JOINT SPACE WITH POSSIBLE DEVELOPING BONY ANKYLOSIS HERE. 2. [id number] RIGHT SI JOINT OA.
== END | disposition home or self-care (01) ==
LOC: RADCTMAIN 13:16
PROVIDERS: ATTEND Orthopaedic Surgery
DX: S72.111A Displaced fracture of greater trochanter of right femur, initial encounter for closed fracture (principal); M16.11 Unilateral primary osteoarthritis, right hip; M46.1 Sacroiliitis, not elsewhere classified

== ENCOUNTER → 2024-03-11 | Outpatient (CLI) | payer MEDICARE, OTHER ==
[2024-03-11 09:58] LABS: INR 0.9 (<1.2); Partial Thromboplastin Time 25.2 sec (22.0-30.0); Prothrombin Time 10.4 sec (10.0-12.5)
[2024-03-11 15:21] LABS: Basophils # (A) 0.03 X 10*3/uL (0.00-0.10); Basophils % (A) 0.7 %; Eosinophils # (A) 0.11 X 10*3/uL (0.04-0.35); Eosinophils % (A) 2.4 %; HCT 42.2 % (37.2-46.3); HGB 13.6 g/dL (12.0-15.0); Lymphocytes # (A) 0.88 X 10*3/uL (0.90-5.00); Lymphocytes % (A) 19.5 %; MCH 29.7 pg (27.0-32.0); MCHC 32.2 g/dL (32.0-37.0); MCV 92.1 FL (80.0-97.0); Mean Platelet Volume 11.5 FL (9.5-12.2); Monocytes # (A) 0.24 X 10*3/uL (0.20-1.00); Monocytes % (A) 5.3 %; NRBC Per 100 WBC 0 X 10*3/uL (0.00-0.01); Neutrophils # (A) 3.24 X 10*3/uL (1.80-7.70); Neutrophils % (A) 71.9 %; Platelet Count 214 X 10*3/uL (140-440); RBC 4.58 X 10*6/uL (4.10-5.20); RDW 12.9 % (11.5-14.5); WBC 4.51 X 10*3/uL (4.50-10.00)
[2024-03-11 15:50] LABS: ALT 21 U/L (8-44); AST 18 U/L (13-35); Albumin 4.5 g/dL (3.8-4.9); Alkaline Phosphatase 85 U/L (41-126); BUN/Creat Ratio 31.14 Ratio (12.00-20.00); Blood Urea Nitrogen 21.8 mg/dL (9.0-27.0); Calcium 9.8 mg/dL (8.7-10.3); Carbon Dioxide 27.7 mmol/L (21.6-31.8); Chloride 101 mmol/L (96-109); Chol/HDL Ratio 2.03 Ratio; Globulin 2.5 g/dL (1.6-3.3); Glucose 104 mg/dL (70-110); LDL Cholesterol,Calculated 91.6 mg/dL (0.0-131.0); Potassium 4.8 mmol/L (3.5-5.5); Sodium 138 mmol/L (135-145); T4, Free (Free Thyroxine) 1.26 ng/dL (0.80-1.80); Total Bilirubin 0.3 mg/dL (0.3-1.2)
== END | disposition home or self-care (01) ==
LOC: LABPAT 08:32
PROVIDERS: ATTEND Orthopaedic Surgery
DX: Z01.818 Encounter for other preprocedural examination (principal); M16.11 Unilateral primary osteoarthritis, right hip; I44.0 Atrioventricular block, first degree; Z22.322 Carrier or suspected carrier of Methicillin resistant Staphylococcus aureus
CPT/HCPCS: 36415; 80053; 80061; 83036; 84439; 84443; 85025; 85610; 85730; 86850; 86900; 86901; 87070; 93005

== ENCOUNTER 2024-03-19 07:14 | Day surgery (SDC) | payer MEDICARE, OTHER ==
[~2024-03-19 07:14] MED LIST changes: -ACETAMINOPHEN TAB 500 MG TAB PO ONE; -DEXAMETHASONE SOD PHOSPHATE 10 MG/ML 1 ML VIAL IV ONE; -HEPARIN SODIUM,PORCINE 5,000 UNIT/ML 1 ML VIAL SQ ONE; -MIDAZOLAM 2 MG/2 ML VIAL IV PRN; -ONDANSETRON 4 MG/2 ML VIAL IVP ONE; +TRANEXAMIC 1,000 MG/100ML-NACL 1,000 MG in SALINE 1 100ML.BAG IVPB PRN
[2024-03-19] MEDS: IV FLUID CONTINUATION 1,000 ML IV ONE ×2 (07:53→10:59)
[2024-03-19] MEDS: MELOXICAM 7.5 MG TAB PO PRN (08:17)
[2024-03-19] MEDS: LACTATED RINGERS 1,000 ML IV SCH (08:17)
[2024-03-19] MEDS: ACETAMINOPHEN TAB 500 MG TAB PO PRN (08:17)
[2024-03-19] MEDS: GABAPENTIN 300 MG CAP PO PRN (08:18)
[2024-03-19] MEDS: DEXAMETHASONE SOD PHOSPHATE 4 MG/ML 1 ML VIAL IV ONE (08:18)
[2024-03-19] MEDS: ONDANSETRON 4 MG/2 ML VIAL IVP ONE (08:18)
[2024-03-19] MEDS: MIDAZOLAM 2 MG/2 ML VIAL IV PRN (08:22)
[2024-03-19] MEDS ORDERED: HYDROmorphone 0.5 MG/0.5 ML SYRINGE IVP PRN ×2 (08:44)
[2024-03-19] MEDS ORDERED: MAGNESIUM HYDROXIDE 2,400 MG/30 ML CUP PO PRN (08:44)
[2024-03-19] MEDS ORDERED: NALOXONE 0.4 MG/ML 1 ML VIAL IV PRN (08:44)
[2024-03-19] MEDS ORDERED: MIDAZOLAM 2 MG/2 ML VIAL ONE (09:02)
[2024-03-19] MEDS ORDERED: DEXAMETHASONE SOD PHOSPHATE 4 MG/ML 1 ML VIAL ONE (09:02)
[2024-03-19] MEDS ORDERED: PHENYLEPHRINE 10 MG/ML VIAL ONE (09:02)
[2024-03-19] MEDS ORDERED: ROPIVACAINE 5 MG/ML 30 ML VIAL ONE (09:02)
[2024-03-19] MEDS ORDERED: fentaNYL (PF) 50 MCG/ML 2 ML AMP ONE (09:02)
[2024-03-19] MEDS: ceFAZolin 1,000 MG in SODIUM CHLORIDE 0.9% 1,000 ML IRRIGATION ONE (09:07)
[2024-03-19] MEDS: ROPIVACAINE 5 MG/ML 30 ML VIAL MISCELLANE ONE ×2 (09:37→10:09)
--- NOTE | 2024-03-19 10:13 | P.OP ---
Date of Procedure: 03/19/24 Preoperative Diagnosis: Severe osteoarthritis right hip Postoperative Diagnosis: Severe osteoarthritis right hip Procedure(s) Performed: Right total hip arthroplasty with a direct anterior approach Implants: [employer] Polarstem standard size 3 with a collar [employer] R3, 3 hole hemispherical acetabular shell, 50 mm [employer] Reflection 6.5 mm cancellus screw, 20 mm, 25 mm [employer] R3, XLPE 20 acetabular liner [employer] Oxinium femoral head 36 mm, -3 All components were press-fit. The articulation is Oxinium on polyethylene. Anesthesia: spinal Surgeon: Kj García Club Waiter/Waitress #1: Kaylan Blackmon Estimated Blood Loss (ml): 150 Pathology: none sent Condition: stable Disposition: PACU Indications for Procedure: After failure of conservative treatment we discussed the surgical and n onsurgical treatment options at length. Patient wishes to proceed with a total hip arthroplasty with a direct anterior approach. Complications specific to this procedure were discussed at length, including but not limited to infection, leg length discrepancy, dislocation, nerve injury, and fracture. Covid-19 was also discussed at length with the patient, and they are aware of the current policies and procedures. The patient was given the option of delaying surgery, but they elect to proceed knowing these risks. Patient is aware of all these complications and informed consent was obtained Operative Findings: The operative findings are consistent with severe arthritis of the right hip Description of Procedure: The patient was seen and evaluated in the preoperative area and the consent was reviewed. The operative site was marked with a skin marker. The patient verified the procedure and operative site. A GER block was placed by anesthesia in the preoperative area. The patient was then brought to the operating room and given preoperative antibiotics intravenously. 1 g of Tranexamic acid was also given intravenously. A spinal anesthetic was administered by the anesthesia department. The patient was then placed on the Damascus table with the bony prominences well-padded. The hip area was then prepped with a ChloraPrep solution and draped in the usual sterile fashion. A universal timeout was then performed, which confirmed the patient's name, surgical site, ALLERGIES, and procedure being performed on the consent. Next the incision site was located at 1 cm distal and 4 cm lateral to the anterior superior iliac spine. The skin and subcutaneous tissues were sharply incised. Incision was carefully dissected down to the fascia overlying the tensor fascia vamshi muscle. This fascia was then incised in line with the muscle fibers. Care was taken to stay laterally in order to avoid injuring the lateral femoral cutaneous nerve. Next, using blunt finger dissection, the tensor fascia vamshi muscle was dissected off its investing fascia. The muscle was then carefully retracted laterally with a cobra retractor over the lateral neck of the femur. Next, the circumflex vessels were identified and cauterized using the Aquamantis device. The anterior hip capsule was then exposed. The capsule was then opened and an inverted T fashion. The retractors were then placed intracapsularly. The retractors were maintained intracapsular throughout the procedure. The proximal femur was then visualized. Fluoroscopic x-rays were then taken in order to evaluate the preoperative leg lengths. A small amount of traction was placed on the leg. The femoral neck was then osteotomized at the appropriate level above the lesser trochanter. A small wedge of bone was then removed from the remaining femoral head. Next, using a corkscrew the femoral head was removed from the acetabulum. On gross visual inspection, the femoral head had complete loss of articular cartilage and multiple periarticular osteophytes. The femoral head was then measured. Attention was then turned to the acetabulum. The acetabulum was exposed and any remaining labrum was excised. Sequential reaming of the acetabulum was performed using fluoroscopic guidance until there was a good bed of bleeding cancellus bone. When the appropriate size was reached, a trial was then placed. The position and fit of the trial was checked with fluoroscopy. The trial was then removed. Then, using fluoroscopic guidance, the final implant was impacted at 20 of anteversion and 40 of abduction, and fully seated in the acetabulum. 2 screws were then placed in the acetabulum. Again fluoroscopy was used to check position of the screws. Next, the liner was then impacted, with a 20 elevated liner located in the anterior superior quadrant. Component locking was confirmed. Attention was then directed to the femur. With the aid of the Damascus table, the femur was externally rotated to approximately 130, extended, and adducted under the opposite leg. A side hook was then placed under the proximal femur, and the side hook elevator was used to elevate the proximal femur while releasing the capsule. Retractors were then placed. A capsular release was performed, as well as a release of the conjoined tendon, which afforded excellent vi sualization of the proximal femur. Next, a box osteotome was used to lateralize the proximal femur. A visual merchandising coordinator was then used to locate the femoral canal. Sequential broaching was then performed with appropriate size which afforded excellent fixation in the proximal femur. A trial was then placed with appropriate head and neck, and the hip was gently reduced with the aid of the Damascus table. Fluoroscopy was then used to check position of the components, as well as to evaluate the leg lengths and offset. The leg lengths and offset were measured as closely as possible to ensure stability of the hip. The hip was then gently dislocated and the trials were then removed. Final implants were then impacted and the hip was again reduced. Final fluoroscopic x-rays confirmed that the components were in anatomic position. The leg lengths and offset were measured and were found to coincide with the trial measurements. The hip was also taken through range of motion, and found to be stable. The hip was then copiously irrigated with antibiotic solution with pulsatile lavage. The hip was then irrigated with Irrisept solution. The soft tissues were then injected with a ropivacaine solution. A second dose of 1 g of Tranexamic acid was also given intravenously. The fascia was then closed with 2-0 strata fix suture. The subcutaneous tissue was closed with 3-0 Vicryl. The subcuticular tissue was closed with 3-0 strata fix suture. The skin was then closed with Exofin skin glue. After the glue and dried, and Optifoam silver impregnated dressing was applied. The patient was th en transferred to the recovery room in stable condition. The embalmer assistant DENNIS Domínguez was required due to the complexity of surgery, and the need for skilled bilingual executive assistant for positioning, draping, exposure, retraction, and closure of the wound.
--- NOTE | 2024-03-19 10:39 | XR ---
Fluoroscopy INDICATION: Pain FINDINGS: Fluoroscopy time: 28 seconds. Images obtained: 0. IMPRESSION: 1. Documentation of fluoroscopy. [facility], , 03/19/2024 10:37 AM
--- NOTE | 2024-03-19 11:10 | P.ANPRN ---
Procedure Note - Anesthesia - Nerve Block Performed Right Nir Single Time Out Performed: Yes Date of Procedure: 03/19/24 Procedure Start Time: : Procedure Stop Time: : Location of Patient: PreOp Indication: Acute Post-Operative Pain, Requested by Surgeon Sedation Type: Sedate with meaningful contact maintained Preparation: Sterile Prep Position: Supine Needle Types: Pajunk Needle Gauge: 21 Ultrasound used to visualize needle placement: Yes Ultrasound used to observe medication spread: Yes Blood Aspirated: No Pain Paresthesia on Injection Noted: No Resistance on Injection: Normal Image Stored and Saved: Yes Events: Uneventful and Well Tolerated (ropi.5% 20cc plus dexamethasone 4mg)
--- NOTE | 2024-03-19 11:13 | XR ---
EXAMINATION TYPE: XR Hip Limited RT DATE OF EXAM: 03/19/2024 COMPARISON: None HISTORY: Right hip replacement TECHNIQUE: AP right hip SIDE IMAGED: Right FINDINGS: There is placement of a right hip prosthesis with acetabular component. No acute fracture o r dislocation evident. Postsurgical soft tissue changes are evident. IMPRESSION: 1. No acute fracture post right hip replacement. [facility], , 03/19/2024 11:11 AM
[2024-03-19] MEDS: SODIUM CHLORIDE 0.9% 1,000 ML IV SCH (16:11)
[2024-03-19] MEDS ORDERED: ONDANSETRON ODT 4 MG TAB PO PRN (18:13)
[2024-03-19] MEDS: risperiDONE 1 MG TAB PO SCH (21:13)
[2024-03-19] MEDS: LIPASE 20,000/PROTEASE 63,000/AMYLASE 84,000 PO SCH (21:13)
[2024-03-19] MEDS: ATORVASTATIN 10 MG TAB PO SCH (21:14)
[2024-03-19] MEDS: LORATADINE 10 MG TAB PO SCH (21:14)
[2024-03-19] MEDS: ASPIRIN 325 MG TAB PO SCH (21:14)
[2024-03-19] MEDS: SENNOSIDES-DOCUSATE SODIUM 1 EACH TAB PO SCH (21:14)
--- NOTE | 2024-03-19 23:22 | P.CONS ---
History of Present Illness - Reason for Consult Consult date: 03/19/24 Medical management Requesting physician: Kj García - History of Present Illness HISTORY OF PRESENT ILLNESS: 73-year-old with active medical history of hypertension, hyperlipidemia, severe osteoarthritis, IBS, chronic gastritis and recurrent peptic ulcer disease, chronic depression, mild anxiety, chronic pain syndrome, mild PAD with amputation of right second toe secondary to gangrenous change and infection, chronic lower back pain, also patient is mentally challenging who has been living with her caregiver for the last 20+ years has been care for by her caregiver who dispenses medication and time help with all medication, diet, nutrition, cleaning and all daily activity. She developed to have much worsening pain and arthritis in the right hip patient was referred to see Dr. Muller of and found to have advanced Degenerative arthritis with failure to conservative management was scheduled for elective anterior total hip arthroplasty of the right side surgery was done today successfully with Dr. Chester patient was in recovery for a period of time was transferred to the floor and has been doing well the pain is under control currently. Her home medication will resume patient is hemodynamically stable. REVIEW OF SYSTEMS: CONSTITUTIONAL: Well-developed no acute respiratory distress. Still having slightly pain in the right hip area. EYES: No icterus sclerae, no conjunctivitis. EARS, NOSE, MOUTH, THROAT, and FACE: No sore throat, lymphadenopathy, carotid bruits or deformity. RESPIRATORY: No SOB cough or wheezes. CARDIOVASCULAR: No CP, Palpitation, PND, Orthopnea, or angina. GASTROINTESTINAL: No Abd pain, Nausea or vomiting, no Diarrhea or constipation, No GI Bleed, no distention or masses. GENITOURINARY: Negative for Hematuria or UTI, no kidney stones. INTEGUMENT/BREAST: Negative for any muscular injury with mild osteoarthritis.. HEMATOLOGIC/LYMPHATIC: Negative for bleed or purpura. MUSCULOSKELTAL: Negative for Myalgia or arthralgia. NEURLOGICAL: No LOC, Sz or syncope, blurred vision dizziness or abnormality.. BEHAVIORAL/PSYCH: Negative. ENDOCRINE: Negative. PHYSICAL EXAMINATION: General Appearance: Alert, cooperative, no distress, appears stated age. Neck HEENT: Supple, no lymphadenopathy, no thyroid enlargement, no carotid bruits. Lungs: Clear to auscultation without crackles or wheezes no rhonchi, no deformity. Chest Wall: Chest wall normal expansion with deep inspiration no tenderness and no deformity was found on exam, no costochondral pain or discomfort. Heart: Regular rate and rhythm, S1, S2 normal, no murmur, rub or gallop. Back: Symmetric, no curvature, ROM normal, no CVA tenderness. Abdomen: Soft, non-tender, bowel sounds active all four quadrants, no masses, no organomegaly. Extremities: Extremities normal, atraumatic, no cyanosis or edema. Incision in the right side looks perfectly fine with no sign of hematoma or bleeding. Pulses: 2+ and symmetric. Skin: Skin color, texture, tugor normal, no rashes or lesions. Neurologic: Alert oriented with slight confusion not fully understand the way how she pronounce the letter makes it a bit difficult beside her mentally challenged. Cranial nerves II through XII intact, no motor deficit, no abnormal balance or gait. ASSESSMENT AND PLAN: _Post direct anterior total hip arthroplasty: Surgery done successfully no complication continue to watch patient hemodynamic status carefully, resume home meds watch for any bleeding. _History of hypertension: Remain on lisinopril 5 mg a day will titrate dose higher if needed _Chronic pancreatitis and chronic pancreatic enzyme secretion will continue Creon and pancreatic enzyme continue probiotic and still on dicyclomine. _Chronic IBS remain on Creon dicyclomine and Creon with probiotic. _Chronic depression and anxiety attack with mild behavioral problem: Has been very well-controlled for long time on Risperdal along with alprazolam and sertraline. Patient seen psychiatry service through [facility]. _Hyperlipidemia: Resume simvastatin 10 mg a day. _Bradycardia: With pulse running in the 50s not affecting patient in a negative way. _Hyperglycemia: Continue patient on diet control A1c is around around 6. _Chronic pain syndrome with worsening pain postsurgery, patient will be on smaller dose of hydrocodone when discharged. _Anticoagulation: Was initiate aspirin protocol by orthopedics with aspirin 325 mg twice a day. _Severe GERD/GI prophylaxis: Remain on omeprazole 20 mg a day. CODE STATUS: Full code. Dr. García thank you much for the consult I will be following our office patient along with you in the hospital on regular basis I can be any further help to please let me know. Past Medical History Past Medical History: GERD/Reflux, Hyperlipidemia, Hypertension, Osteoarthritis (OA) Additional Past Medical History / Comment(s): IBS, frequent nausea, mentally challenged, lives w/caregiver/guardian Alanna History of Any Multi-Drug Resistant Organisms: None Reported Past Surgical History: Orthopedic Surgery Additional Past Surgical History / Comment(s): EGD, amputation right 2nd toe, left foot surg. Past Anesthesia/Blood Transfusion Reactions: No Reported Reaction Additional Past Anesthesia/Blood Transfusion Reaction / Comm: Has never had anesthesia. Smoking Status: Never smoker - Past Family History Mother Additional Family Medical History / Comment(s): Family history unknown. Medications and Allergies Home Medications Medication Instructions Recorded Confirmed Type ALPRAZolam [Xanax] 0.5 mg PO BID@0800,1200 02/05/18 03/19/24 History Aspirin 81 mg PO DAILY 02/05/18 03/18/24 History Dicyclomine [Bentyl] 20 mg PO AC-TID 02/05/18 03/19/24 History Sertraline HCl [Zoloft] 50 mg PO DAILY 02/05/18 03/19/24 History lisinopriL [Zestril] 5 mg PO DAILY 02/05/18 03/19/24 History Cholecalciferol (Vitamin D3) 125 mcg PO DAILY 02/11/20 03/19/24 History [Vitamin D3] Multivit-Min/Iron/Folic/Lutein 1 tab PO DAILY 02/11/20 03/19/24 History [Centrum Silver Women Tablet] Omeprazole 40 mg PO DAILY 02/11/20 03/19/24 History Simvastatin [Zocor] 10 mg PO HS 02/11/20 03/19/24 History risperiDONE [RisperDAL] 2 mg PO HS 02/11/20 03/18/24 History risperiDONE [RisperDAL] 1.5 tab PO DAILY 04/13/20 03/19/24 History Acetaminophen Tab [Tylenol] 650 mg PO Q6H PRN 03/18/24 03/19/24 History Fexofenadine HCl [Scarlet Allergy] 180 mg PO HS 03/18/24 03/19/24 History Lipase/Protease/Amylase [[place] 24,000 units PO 1200,1700,2200 03/18/24 03/19/24 History 24,000 Units Capsule] Ondansetron Odt [Zofran Odt] 4 mg PO Q8HR PRN 03/18/24 03/19/24 History Aspirin 325 mg PO BID #60 tab 03/19/24 Rx HYDROcodone/APAP 7.5-325MG [[place] 1 - 2 tab PO Q6H PRN #32 tab 03/19/24 Rx 7.5-325] Sennosides [Senokot] 2 tab PO DAILY PRN #60 tablet 03/19/24 Rx Allergies Allergy/AdvReac Type Severity Reaction Status Date / Time No Known Allergies Allergy Verified 03/19/24 07:46 Physical Exam Vitals: Vital Signs Temp Pulse Pulse Resp BP BP Pulse Ox 03/19/24 15:08 97.4 F L 81 16 127/80 98 03/19/24 14:45 90 16 134/73 96 03/19/24 14:15 86 15 125/61 96 03/19/24 13:45 84 15 114/69 96 03/19/24 13:15 77 15 126/72 96 03/19/24 12:45 71 17 118/70 99 03/19/24 12:15 73 16 121/62 99 03/19/24 12:00 75 16 118/55 99 03/19/24 11:45 76 16 104/57 98 03/19/24 11:30 77 16 103/58 99 03/19/24 11:15 77 16 98/53 98 03/19/24 11:00 78 16 97/55 98 03/19/24 10:45 72 16 93/52 100 03/19/24 10:30 97.7 F 68 16 85/51 100 03/19/24 08:31 93 16 140/82 100 03/19/24 07:54 97.9 F 109 H 16 143/77 98 Intake and Output 03/19/24 03/19/24 03/19/24 06:59 14:59 22:59 Intake Total 1451 Output Total 150 Balance 1301 Intake: IV 1451 Output: Estimated Blood Loss 150 Other: # Voids 1 Weight 67.8 kg 67.8 kg
[2024-03-20] MEDS: HYDROcodone/APAP 7.5-325MG 1 EACH TAB PO PRN (00:23)
[2024-03-20] MEDS: HYDROmorphone 0.5 MG/0.5 ML SYRINGE IVP PRN (04:12)
[2024-03-20] MEDS: ONDANSETRON 4 MG/2 ML VIAL IVP PRN (04:37)
[2024-03-20] MEDS: DICYCLOMINE 20 MG TAB PO SCH (06:53)
[2024-03-20] MEDS: PANTOPRAZOLE 40 MG TABLET PO SCH (06:53)
[2024-03-20] MEDS: ALPRAZolam 0.5 MG TAB PO SCH (08:45)
[2024-03-20] MEDS: SERTRALINE 50 MG TAB PO SCH (08:45)
[2024-03-20] MEDS: lisinopriL 5 MG TAB PO SCH (08:48)
[2024-03-20] MEDS: MULTIVITAMINS, THERA 1 EACH TAB PO SCH (08:48)
[2024-03-20] MEDS: risperiDONE 0.5 MG TAB PO SCH (08:48)
[2024-03-20] MEDS: CHOLECALCIFEROL 125 MCG (5000 IU) TABLET PO SCH (08:48)
[2024-03-20] MEDS ORDERED: ASPIRIN 81 MG PO SCH (09:00)
[2024-03-20 09:01] LABS: Basophils # (A) 0.01 X 10*3/uL (0.00-0.10); Basophils % (A) 0.1 %; Eosinophils # (A) 0.01 X 10*3/uL (0.04-0.35); Eosinophils % (A) 0.1 %; HCT 35.3 % (37.2-46.3); HGB 11.5 g/dL (12.0-15.0); Lymphocytes # (A) 1.03 X 10*3/uL (0.90-5.00); Lymphocytes % (A) 13.1 %; MCH 29.7 pg (27.0-32.0); MCHC 32.6 g/dL (32.0-37.0); MCV 91.2 FL (80.0-97.0); Mean Platelet Volume 11.4 FL (9.5-12.2); Monocytes # (A) 0.86 X 10*3/uL (0.20-1.00); Monocytes % (A) 10.9 %; NRBC Per 100 WBC 0 X 10*3/uL (0.00-0.01); Neutrophils # (A) 5.95 X 10*3/uL (1.80-7.70); Neutrophils % (A) 75.4 %; Platelet Count 206 X 10*3/uL (140-440); RBC 3.87 X 10*6/uL (4.10-5.20); RDW 13.1 % (11.5-14.5); WBC 7.89 X 10*3/uL (4.50-10.00)
--- NOTE | 2024-03-20 10:56 | P.PN ---
Subjective Progress Note Date: 03/20/24 This is a 73-year-old female who is status post right total hip arthroplasty. This is postoperative day #1 and patient is seen and evaluated at bedside today. Patient states that she did well with physical therapy, but she is feeling somewhat nauseous today. Otherwise, patient denies any new complaints. Objective - Vital Signs Vital signs: Vital Signs Temp 97.6 F 03/20/24 07:49 Pulse 82 03/20/24 07:49 Resp 16 03/20/24 07:49 BP 102/67 03/20/24 07:49 Pulse Ox 97 03/20/24 07:49 FiO2 Intake & Output 03/19/24 03/20/24 03/20/24 18:59 06:59 18:59 Intake Total 1451 Output Total 150 Balance 1301 Weight 67.8 kg Intake: IV 1451 Output: Estimated Blood Loss 150 Other: Voiding Method Bedpan # Voids 1 2 - Exam Vital signs are stable. Patient is in no acute distress and is alert and oriented 3. Calf is soft and nontender to palpation. Dressing is clean, dry, and intact. Patient has full foot and ankle motion without pain or difficulty. Sensation intact. Neurovascular status and circulatory status are intact. - Labs CBC & Chem 7: 03/20/24 05:28 Labs: Abnormal Lab Results - Last 24 Hours (Table) 03/20/24 Range/Units 05:28 RBC 3.87 L (4.10-5.20) X 10*6/uL Hgb 11.5 L (12.0-15.0) g/dL Hct 35.3 L (37.2-46.3) % Eosinophils # 0.01 L (0.04-0.35) X 10*3/uL Assessment and Plan (1) Osteoarthritis of right hip Current Visit: Yes Status: Acute Code(s): M16.11 - UNILATERAL PRIMARY OSTEOARTHRITIS, RIGHT HIP SNOMED Code(s): 140403654106043 (2) S/P total right hip arthroplasty Current Visit: Yes Status: Acute Code(s): Z96.641 - PRESENCE OF RIGHT ARTIFICIAL HIP JOINT SNOMED Code(s): 636888765844 Plan: Continue routine postop care and pain control. Continue anticoagulation. Weightbearing as tolerated with a walker Leave dressing in place for 7 days. Appreciate input from internal medicine. Anticipate discharge home with homecare in the next 24-48 hours.
--- NOTE | 2024-03-20 22:58 | P.PN ---
Subjective Progress Note Date: 03/20/24 HISTORY OF PRESENT ILLNESS: 73-year-old with active medical history of hypertension, hyperlipidemia, severe osteoarthritis, IBS, chronic gastritis and recurrent peptic ulcer disease, chronic depression, mild anxiety, chronic pain syndrome, mild PAD with amputation of right second toe secondary to gangrenous change and infection, chronic lower back pain, also patient is mentally challenging who has been living with her caregiver for the last 20+ years has been care for by her caregiver who dispenses medication and time help with all medication, diet, nutrition, cleaning and all daily activity. She developed to have much worsening pain and arthritis in the right hip patient was referred to see Dr. Benavidez and found to have advanced Degenerative arthritis with failure to conservative management was scheduled for elective anterior total hip arthroplasty of the right side surgery was done today successfully with Dr. Chester patient was in recovery for a period of time was transferred to the floor and has been doing well the pain is under control currently. Her home medication will resume patient is hemodynamically stable. 03/20/2024: Patient is doing slightly better her incision looks good no sign of induration swelling or drainage. She is all set her home meds vitals are stable pain is under control when she is not moving ambulating still a problem at this point. With patient's current condition which is mentally challenged needed more help she lives with her caregiver who is in her 80s and as of today patient will still require at least 1 person clinical research assistant when attempt to move still for safety reason will be better for patient to do more physical therapy and probably consider to go to subacute rehab for a week or so before going back home. There is no diarrhea or worsening IBS symptoms, blood pressure is under control and if we have to will titrate lisinopril up to 10. Her pulse rate is running in the 80s and 90s she is not bradycardic anymore pulse ox early this morning was still like in the low 90s with rest probably from her pain meds and management. REVIEW OF SYSTEMS: CONSTITUTIONAL: Well-developed no acute respiratory distress. Still having slightly pain in the right hip area. EYES: No icterus sclerae, no conjunctivitis. EARS, NOSE, MOUTH, THROAT, and FACE: No sore throat, lymphadenopathy, carotid bruits or deformity. RESPIRATORY: No SOB cough or wheezes. CARDIOVASCULAR: No CP, Palpitation, PND, Orthopnea, or angina. GASTROINTESTINAL: No Abd pain, Nausea or vomiting, no Diarrhea or constipation, No GI Bleed, no distention or masses. GENITOURINARY: Negative for Hematuria or UTI, no kidney stones. INTEGUMENT/BREAST: Negative for any muscular injury with mild osteoarthritis.. HEMATOLOGIC/LYMPHATIC: Negative for bleed or purpura. MUSCULOSKELTAL: Negative for Myalgia or arthralgia. NEURLOGICAL: No LOC, Sz or syncope, blurred vision dizziness or abnormality.. BEHAVIORAL/PSYCH: Negative. ENDOCRINE: Negative. PHYSICAL EXAMINATION: General Appearance: Alert, cooperative, no distress, appears stated age. Neck HEENT: Supple, no lymphadenopathy, no thyroid enlargement, no carotid bruits. Lungs: Clear to auscultation without crackles or wheezes no rhonchi, no deformity. Chest Wall: Chest wall normal expansion with deep inspiration no tenderness and no deformity was found on exam, no costochondral pain or discomfort. Heart: Regular rate and rhythm, S1, S2 normal, no murmur, rub or gallop. Back: Symmetric, no curvature, ROM normal, no CVA tenderness. Abdomen: Soft, non-tender, bowel sounds active all four quadrants, no masses, no organomegaly. Extremities: Extremities normal, atraumatic, no cyanosis or edema. Incision in the right side looks perfectly fine with no sign of hematoma or bleeding. Pulses: 2+ and symmetric. Skin: Skin color, texture, tugor normal, no rashes or lesions. Neurologic: Alert oriented with slight confusion not fully understand the way how she pronounce the letter makes it a bit difficult beside her mentally challenged. Cranial nerves II through XII intact, no motor deficit, no abnormal balance or gait. ASSESSMENT AND PLAN: _Post direct anterior total hip arthroplasty: Surgery done successfully no complication continue to watch patient hemodynamic status carefully, resume home meds watch for any bleeding. _History of hypertension: Remain on lisinopril 5 mg a day will titrate dose higher if needed _Chronic pancreatitis and chronic pancreatic enzyme secretion will continue Creo n and pancreatic enzyme continue probiotic and still on dicyclomine. _Chronic IBS remain on Creon dicyclomine and Creon with probiotic. _Chronic depression and anxiety attack with mild behavioral problem: Has been very well-controlled for long time on Risperdal along with alprazolam and sertraline. Patient seen psychiatry service through [facility]. _Hyperlipidemia: Resume simvastatin 10 mg a day. _Bradycardia: With pulse running in the 50s not affecting patient in a negative way. _Hyperglycemia: Continue patient on diet control A1c is around around 6. _Chronic pain syndrome with worsening pain postsurgery, patient will be on smaller dose of hydrocodone when discharged. _Anticoagulation: Was initiate aspirin protocol by orthopedics with aspirin 325 mg twice a day. _Severe GERD/GI prophylaxis: Remain on omeprazole 20 mg a day. Sadly she is having quite a bit nausea this morning but will titrate physical therapy the patient requires help to go to subacute rehab. Objective - Vital Signs Vital signs: Vital Signs Temp 98.9 F 03/20/24 02:08 Pulse 92 03/20/24 02:08 Resp 18 03/20/24 02:08 BP 106/68 03/20/24 02:08 Pulse Ox 93 L 03/20/24 02:08 FiO2 Intake & Output 03/19/24 03/19/24 03/20/24 06:59 18:59 06:59 Intake Total 1451 Output Total 150 Balance 1301 Weight 67.8 kg Intake: IV 1451 Output: Estimated Blood Loss 150 Other: Voiding Method Bedpan # Voids 1 - Labs CBC & Chem 7: 03/20/24 05:28
[2024-03-21] MEDS: HYDROcodone/APAP 7.5-325MG 1 EACH TAB PO PRN (00:08)
[2024-03-21] MEDS: ACETAMINOPHEN TAB 325 MG TAB PO PRN (08:37)
--- NOTE | 2024-03-21 14:24 | P.PN ---
Subjective Progress Note Date: 03/21/24 This is a 73-year-old female who is status post right total hip arthroplasty. This is postoperative day #2 and patient is seen and evaluated at bedside today. Patient states that she is doing well today and she denies any new complaints. Objective - Vital Signs Vital signs: Vital Signs Temp 97.3 F L 03/21/24 07:37 Pulse 100 03/21/24 07:37 Resp 17 03/21/24 07:37 BP 132/85 03/21/24 07:37 Pulse Ox 94 L 03/21/24 07:37 FiO2 Intake & Output 03/20/24 03/21/24 03/21/24 18:59 06:59 18:59 Intake Total 610 Output Total 600 Balance 610 -600 Intake: Intake, IV Titration 610 Amount Sodium Chloride 0.9% 1, 560 000 ml @ 70 mls/hr IV . [id number] [facility] Rx#:[id number] ceFAZolin 2 gm In Sodium 50 Chloride 0.9% 50 ml @ 100 mls/hr IVPB Q8HR [facility] Rx# :[id number] Output: Urine 600 Other: Voiding Method Toilet - Exam Vital signs are stable. Patient is in no acute distress and is alert and oriented 3. Calf is soft and nontender to palpation. Dressing is clean, dry, and intact. Patient has full foot and ankle motion without pain or difficulty. Sensation intact. Neurovascular status and circulatory status are intact. - Labs CBC & Chem 7: 03/20/24 05:28 Assessment and Plan (1) Osteoarthritis of right hip Current Visit: Yes Status: Acute Code(s): M16.11 - UNILATERAL PRIMARY OSTEOARTHRITIS, RIGHT HIP SNOMED Code(s): 575882367720948 (2) S/P total right hip arthroplasty Current Visit: Yes Status: Acute Code(s): Z96.641 - PRESENCE OF RIGHT ARTIFICIAL HIP JOINT SNOMED Code(s): 320314659472 Plan: Continue routine postop care and pain control. Continue anticoagulation with aspirin. Weightbearing as tolerated with a walker. Leave dressing in place for 7 days. Appreciate input from internal medicine. Anticipate discharge to [facility] in the next 24-48 hours.
--- NOTE | 2024-03-22 07:07 | P.PN ---
Subjective Progress Note Date: 03/22/24 Principal diagnosis: Status post right total hip arthroplasty on 03/19/2024 for severe right hip osteoarthritis. This is a 73-year-old female who is status post right total hip arthroplasty. This is postoperative day #3 and patient is seen and evaluated at bedside today. Patient states that she is doing well today and she denies any new complaints. I spoke with nursing staff and they stated the patient did well walking to the bathroom overnight with walker and assistance. Objective - Vital Signs Vital signs: Vital Signs Temp 98.3 F 03/22/24 02:00 Pulse 97 03/22/24 02:00 Resp 17 03/21/24 14:15 BP 126/69 03/22/24 02:00 Pulse Ox 92 L 03/22/24 02:00 FiO2 Intake & Output 03/21/24 03/22/24 03/22/24 18:59 06:59 18:59 Output Total 700 1000 Balance -700 -1000 Output: Urine 700 1000 Other: Voiding Method Toilet External Catheter # Voids 2 1 - Exam Patient is resting in chair. Patient is in no acute distress and is alert and able to answer questions. Calf is soft and nontender to palpation. Dressing is clean, dry, and intact. Patient has full foot and ankle motion without pain or difficulty. Sensation intact. Neurovascular status and circulatory status are grossly intact. - Labs CBC & Chem 7: 03/20/24 05:28 Assessment and Plan Assessment: Postop day #3 status post right total hip arthroplasty Plan: Continue routine postop care and pain control. Continue anticoagulation with aspirin. Weightbearing as tolerated with a walker. Leave dressing in place for 7 days from 03/19/2024. Appreciate input from internal medicine. Anticipate discharge to [facility] in the next 24 hours.
--- NOTE | 2024-03-22 07:17 | P.PN ---
Subjective Progress Note Date: 03/21/24 HISTORY OF PRESENT ILLNESS: 73-year-old with active medical history of hypertension, hyperlipidemia, severe osteoarthritis, IBS, chronic gastritis and recurrent peptic ulcer disease, chronic depression, mild anxiety, chronic pain syndrome, mild PAD with amputation of right second toe secondary to gangrenous change and infection, chronic lower back pain, also patient is mentally challenging who has been living with her caregiver for the last 20+ years has been care for by her caregiver who dispenses medication and time help with all medication, diet, nutrition, cleaning and all daily activity. She developed to have much worsening pain and arthritis in the right hip patient was referred to see Dr. Benavidez and found to have advanced Degenerative arthritis with failure to conservative management was scheduled for elective anterior total hip arthroplasty of the right side surgery was done today successfully with Dr. Chester patient was in recovery for a period of time was transferred to the floor and has been doing well the pain is under control currently. Her home medication will resume patient is hemodynamically stable. 03/20/2024: Patient is doing slightly better her incision looks good no sign of induration swelling or drainage. She is all set her home meds vitals are stable pain is under control when she is not moving ambulating still a problem at this point. With patient's current condition which is mentally challenged needed more help she lives with her caregiver who is in her 80s and as of today patient will still require at least 1 person optometry assistant when attempt to move still for safety reason will be better for patient to do more physical therapy and probably consider to go to subacute rehab for a week or so before going back home. There is no diarrhea or worsening IBS symptoms, blood pressure is under control and if we have to will titrate lisinopril up to 10. Her pulse rate is running in the 80s and 90s she is not bradycardic anymore pulse ox early this morning was still like in the low 90s with rest probably from her pain meds and management. 03/21/2024: She is doing slightly better with physical therapy still require more help and expected not been able to move independently, pain is under control currently does not require much for pain management still on hydrocodone orally. Blood pressure remain well-controlled does not require any change or increase medication, when patient sleep apparently her pulse ox dropped down to the bed there is a slight possibility of apnea but again this is mostly with pain management might be suppression related to medication. Still final plan is to continue physical therapy and prepare for getting patient to go to subacute rehab as early as tomorrow. REVIEW OF SYSTEMS: CONSTITUTIONAL: Well-developed no acute respiratory distress. Still having slightly pain in the right hip area. EYES: No icterus sclerae, no conjunctivitis. EARS, NOSE, MOUTH, THROAT, and FACE: No sore throat, lymphadenopathy, carotid bruits or deformity. RESPIRATORY: No SOB cough or wheezes. CARDIOVASCULAR: No CP, Palpitation, PND, Orthopnea, or angina. GASTROINTESTINAL: No Abd pain, Nausea or vomiting, no Diarrhea or constipation, No GI Bleed, no distention or masses. GENITOURINARY: Negative for Hematuria or UTI, no kidney stones. INTEGUMENT/BREAST: Negative for any muscular injury with mild osteoarthritis.. HEMATOLOGIC/LYMPHATIC: Negative for bleed or purpura. MUSCULOSKELTAL: Negative for Myalgia or arthralgia. NEURLOGICAL: No LOC, Sz or syncope, blurred vision dizziness or abnormality.. BEHAVIORAL/PSYCH: Negative. ENDOCRINE: Negative. PHYSICAL EXAMINATION: General Appearance: Alert, cooperative, no distress, appears stated age. Neck HEENT: Supple, no lymphadenopathy, no thyroid enlargement, no carotid bruits. Lungs: Clear to auscultation without crackles or wheezes no rhonchi, no deformity. Chest Wall: Chest wall normal expansion with deep inspiration no tenderness and no deformity was found on exam, no costochondral pain or discomfort. Heart: Regular rate and rhythm, S1, S2 normal, no murmur, rub or gallop. Back: Symmetric, no curvature, ROM normal, no CVA tenderness. Abdomen: Soft, non-tender, bowel sounds active all four quadrants, no masses, no organomegaly. Extremities: Extremities normal, atraumatic, no cyanosis or edema. Incision in the right side looks perfectly fine with no sign of hematoma or bleeding. Pulses: 2+ and symmetric. Skin: Skin color, texture, tugor normal, no rashes or lesions. Neurologic: Alert oriented with slight confusion not fully understand the way how she pronounce the letter makes it a bit difficult beside her mentally challenged. Cranial nerves II through XII intact, no motor deficit, no abnormal balance or gait. ASSESSMENT AND PLAN: _Post direct anterior total hip arthroplasty: Surgery done successfully no complication continue to watch patient hemodynamic status carefully, resume home meds watch for any bleeding. _History of hypertension: Remain on lisinopril 5 mg a day blood pressure is well-controlled. _Chronic pancreatitis and chronic pancreatic enzyme secretion will continue Creon and pancreatic enzyme continue probiotic and still on dicyclomine. _Chronic IBS remain on Creon, probiotic and dicyclomine no diarrhea or worsening symptoms at this point. _Chronic depression and anxiety attack with mild behavioral problem: Has been very well-controlled for long time on Risperdal along with alprazolam and sertraline. Patient seen psychiatry service through [facility]. _Hyperlipidemia: Resume simvastatin 10 mg a day. _Bradycardia: She is not symptomatic pulse is fluctuated at this point with pain but not any slower. _Hyperglycemia: Continue patient on diet control A1c is around around 6. _Chronic pain syndrome with worsening pain postsurgery, patient will be on smaller dose of hydrocodone when discharged. _Anticoagulation: Was initiate aspirin protocol by orthopedics with aspirin 325 mg twice a day. _Severe GERD/GI prophylaxis: Remain on omeprazole 20 mg a day. Doing much better today not nauseous anymore will continue to be involved with physical therapy and hopefully prepare for going to subacute rehab tomorrow. Objective - Vital Signs Vital signs: Vital Signs Temp 98.9 F 03/21/24 01:45 Pulse 92 03/21/24 04:01 Resp 17 03/21/24 01:45 BP 126/74 03/21/24 01:45 Pulse Ox 95 03/21/24 01:45 FiO2 Intake & Output 03/20/24 03/21/24 03/21/24 18:59 06:59 18:59 Intake Total 610 Output Total 600 Balance 610 -600 Intake: Intake, IV Titration 610 Amount Sodium Chloride 0.9% 1, 560 000 ml @ 70 mls/hr IV . [id number] [facility] Rx#:[id number] ceFAZolin 2 gm In Sodium 50 Chloride 0.9% 50 ml @ 100 mls/hr IVPB Q8HR [facility] Rx# :[id number] Output: Urine 600 Other: Voiding Method Toilet - Labs CBC & Chem 7: 03/20/24 05:28 Labs: Abnormal Lab Results - Last 24 Hours (Table) 03/20/24 Range/Units 05:28 RBC 3.87 L (4.10-5.20) X 10*6/uL Hgb 11.5 L (12.0-15.0) g/dL Hct 35.3 L (37.2-46.3) % Eosinophils # 0.01 L (0.04-0.35) X 10*3/uL
[2024-03-22 08:55] LABS: Basophils # (A) 0.04 X 10*3/uL (0.00-0.10); Basophils % (A) 0.7 %; Eosinophils # (A) 0.19 X 10*3/uL (0.04-0.35); Eosinophils % (A) 3.1 %; HCT 32.3 % (37.2-46.3); HGB 10.4 g/dL (12.0-15.0); Lymphocytes # (A) 1.23 X 10*3/uL (0.90-5.00); Lymphocytes % (A) 20.4 %; MCH 29.6 pg (27.0-32.0); MCHC 32.2 g/dL (32.0-37.0); Mean Platelet Volume 11.3 FL (9.5-12.2); Monocytes % (A) 9.9 %; NRBC Per 100 WBC 0 X 10*3/uL (0.00-0.01); Neutrophils # (A) 3.96 X 10*3/uL (1.80-7.70); Neutrophils % (A) 65.6 %; Platelet Count 179 X 10*3/uL (140-440); RBC 3.51 X 10*6/uL (4.10-5.20); RDW 13.2 % (11.5-14.5); WBC 6.04 X 10*3/uL (4.50-10.00)
--- NOTE | 2024-03-22 10:37 | P.PN ---
Subjective Progress Note Date: 03/22/24 HISTORY OF PRESENT ILLNESS: 73-year-old with active medical history of hypertension, hyperlipidemia, severe osteoarthritis, IBS, chronic gastritis and recurrent peptic ulcer disease, chronic depression, mild anxiety, chronic pain syndrome, mild PAD with amputation of right second toe secondary to gangrenous change and infection, chronic lower back pain, also patient is mentally challenging who has been living with her caregiver for the last 20+ years has been care for by her caregiver who dispenses medication and time help with all medication, diet, nutrition, cleaning and all daily activity. She developed to have much worsening pain and arthritis in the right hip patient was referred to see Dr. Benavidez and found to have advanced Degenerative arthritis with failure to conservative management was scheduled for elective anterior total hip arthroplasty of the right side surgery was done today successfully with Dr. Chester patient was in recovery for a period of time was transferred to the floor and has been doing well the pain is under control currently. Her home medication will resume patient is hemodynamically stable. 03/20/2024: Patient is doing slightly better her incision looks good no sign of induration swelling or drainage. She is all set her home meds vitals are stable pain is under control when she is not moving ambulating still a problem at this point. With patient's current condition which is mentally challenged needed more help she lives with her caregiver who is in her 80s and as of today patient will still require at least 1 person employment legal assistant when attempt to move still for safety reason will be better for patient to do more physical therapy and probably consider to go to subacute rehab for a week or so before going back home. There is no diarrhea or worsening IBS symptoms, blood pressure is under control and if we have to will titrate lisinopril up to 10. Her pulse rate is running in the 80s and 90s she is not bradycardic anymore pulse ox early this morning was still like in the low 90s with rest probably from her pain meds and management. 03/21/2024: She is doing slightly better with physical therapy still require more help and expected not been able to move independently, pain is under control currently does not require much for pain management still on hydrocodone orally. Blood pressure remain well-controlled does not require any change or increase medication, when patient sleep apparently her pulse ox dropped down to the bed there is a slight possibility of apnea but again this is mostly with pain management might be suppression related to medication. Still final plan is to continue physical therapy and prepare for getting patient to go to subacute rehab as early as tomorrow. 03/22/2024: She is doing very well blood pressure is 126/69 with pulse rate of 88 pulse ox 92% on room air, patient's pain is well-controlled currently require minimal dose of hydrocodone to keep her symptoms under control. Patient is already on home meds, still slightly constipated will continue fiber and stool softener. She is stable enough to be discharged to subacute rehab today we will continue aspirin as an anticoagulation but resume all her home meds. REVIEW OF SYSTEMS: CONSTITUTIONAL: Well-developed no acute respiratory distress. Still having slightly pain in the right hip area. EYES: No icterus sclerae, no conjunctivitis. EARS, NOSE, MOUTH, THROAT, and FACE: No sore throat, lymphadenopathy, carotid bruits or deformity. RESPIRATORY: No SOB cough or wheezes. CARDIOVASCULAR: No CP, Palpitation, PND, Orthopnea, or angina. GASTROINTESTINAL: No Abd pain, Nausea or vomiting, no Diarrhea or constipation, No GI Bleed, no distention or masses. GENITOURINARY: Negative for Hematuria or UTI, no kidney stones. INTEGUMENT/BREAST: Negative for any muscular injury with mild osteoarthritis.. HEMATOLOGIC/LYMPHATIC: Negative for bleed or purpura. MUSCULOSKELTAL: Negative for Myalgia or arthralgia. NEURLOGICAL: No LOC, Sz or syncope, blurred vision dizziness or abnormality.. BEHAVIORAL/PSYCH: Negative. ENDOCRINE: Negative. PHYSICAL EXAMINATION: General Appearance: Alert, cooperative, no distress, appears stated age. Neck HEENT: Supple, no lymphadenopathy, no thyroid enlargement, no carotid bruits. Lungs: Clear to auscultation without crackles or wheezes no rhonchi, no deformity. Chest Wall: Chest wall normal expansion with deep inspiration no tenderness and no deformity was found on exam, no costochondral pain or discomfort. Heart: Regular rate and rhythm, S1, S2 normal, no murmur, rub or gallop. Back: Symmetric, no curvature, ROM normal, no CVA tenderness. Abdomen: Soft, non-tender, bowel sounds active all four quadrants, no masses, no organomegaly. Extremities: Extremities normal, atraumatic, no cyanosis or edema. Incision in the right side looks perfectly fine with no sign of hematoma or bleeding. Pulses: 2+ and symmetric. Skin: Skin color, texture, tugor normal, no rashes or lesions. Neurologic: Alert oriented with slight confusion not fully understand the way how she pronounce the letter makes it a bit difficult beside her mentally challenged. Cranial nerves II through XII intact, no motor deficit, no abnormal balance or gait. ASSESSMENT AND PLAN: _Post direct anterior total hip arthroplasty: Successful surgery with no complications so far and doing very well. _Pain management: Require minimum dose of hydrocodone which should be continued for the next week or 2. _Hyperlipidemia: Resume simvastatin 10 mg a day. _History of hypertension: Remain on lisinopril 5 mg a day blood pressure is well-controlled. _Chronic pancreatitis and IBS: Has been doing much better on dicyclomine and Creon. _Chronic depression and anxiety attack with mild behavioral problem: Has been very well-controlled for long time on Risperdal along with alprazolam and sertraline. Patient seen psychiatry service through [facility]. _Bradycardia: She is not symptomatic pulse is fluctuated at this point with pain but not any slower. _Hyperglycemia: Continue patient on diet control A1c is around around 6. _Chronic pain syndrome with worsening pain postsurgery, patient will be on smaller dose of hydrocodone when discharged. _Anticoagulation: Was initiate aspirin protocol by orthopedics with aspirin 325 mg twice a day. _Severe GERD/GI prophylaxis: Remain on omeprazole 20 mg a day. Discharge planning: Patient hopefully will be able to go to subacute rehab today which will be there for 1 to 2 weeks before going back home with her caregiver. Objective - Vital Signs Vital signs: Vital Signs Temp 98.3 F 03/22/24 02:00 Pulse 97 03/22/24 02:00 Resp 17 03/21/24 14:15 BP 126/69 03/22/24 02:00 Pulse Ox 92 L 03/22/24 02:00 FiO2 Intake & Output 03/21/24 03/22/24 03/22/24 18:59 06:59 18:59 Output Total 700 1000 Balance -700 -1000 Output: Urine 700 1000 Other: Voiding Method Toilet External Catheter # Voids 2 1 - Labs CBC & Chem 7: 03/20/24 05:28
--- NOTE | 2024-03-23 07:46 | P.PN ---
Subjective Progress Note Date: 03/23/24 Principal diagnosis: Status post right total hip arthroplasty on 03/19/2024 for severe right hip osteoarthritis. This is a 73-year-old female who is status post right total hip arthroplasty for severe osteoarthritis. This is postoperative day #4 and patient is seen and evaluated at bedside today. Patient states that she is doing well today and she denies any new complaints. I spoke with nursing staff and they stated the patient has been doing well, and is waiting on auth for transfer to SNF. Objective - Vital Signs Vital signs: Vital Signs Temp 98.8 F 03/23/24 02:00 Pulse 99 03/23/24 02:00 Resp 17 03/22/24 12:56 BP 137/79 03/23/24 02:00 Pulse Ox 94 L 03/23/24 02:00 FiO2 Intake & Output 03/22/24 03/23/24 03/23/24 18:59 06:59 18:59 Other: Voiding Method Toilet Toilet External Catheter External Catheter # Voids 1 - Exam Patient is resting in chair. Patient is in no acute distress and is alert and able to answer questions. Calf is soft and nontender to palpation. Dressing is clean, dry, and intact. Operative femoral nerve function is grossly intact. Patient is able to plantarflex and dorsiflex the operative ankle and toes. Gross sensation to the operative extremity lower extremity is intact. - Labs CBC & Chem 7: 03/22/24 06:18 Labs: Abnormal Lab Results - Last 24 Hours (Table) 03/22/24 Range/Units 06:18 RBC 3.51 L (4.10-5.20) X 10*6/uL Hgb 10.4 L (12.0-15.0) g/dL Hct 32.3 L (37.2-46.3) % Assessment and Plan Assessment: Postop day #4 status post right total hip arthroplasty Plan: Continue routine postop care and pain control. Continue anticoagulation with aspirin. Weightbearing as tolerated with a walker. Leave dressing in place for 7 days from 03/19/2024. Appreciate input from internal medicine. Anticipate discharge to ECF in the next 24 hours.
--- NOTE | 2024-03-23 15:15 | P.PN ---
Subjective Progress Note Date: 03/23/24 Interval History: 73-year-old with active medical history of hypertension, hyperlipidemia, severe osteoarthritis, IBS, chronic gastritis and recurrent peptic ulcer disease, chronic depression, mild anxiety, chronic pain syndrome, mild PAD with amputation of right second toe secondary to gangrenous change and infection, chronic lower back pain, also patient is mentally challenging who has been living with her caregiver for the last 20+ years has been care for by her caregiver who dispenses medication and time help with all medication, diet, nutrition, cleaning and all daily activity. She developed to have much worsening pain and arthritis in the right hip patient was referred to see Dr. Benavidez and found to have advanced Degenerative arthritis with failure to conservative management was scheduled for elective anterior total hip arthroplasty of the right side surgery was done today successfully with Dr. Chester patient was in recovery for a period of time was transferred to the floor and has been doing well the pain is under control currently. Her home medication will resume patient is hemodynamically stable. 03/20/2024: Patient is doing slightly better her incision looks good no sign of induration swelling or drainage. She is all set her home meds vitals are stable pain is under control when she is not moving ambulating still a problem at this point. With patient's current condition which is mentally challenged needed more help she lives with her caregiver who is in her 80s and as of today patient will still require at least 1 person social science research assistant when attempt to move still for safety reason will be better for patient to do more physical therapy and probably consider to go to subacute rehab for a week or so before going back home. There is no diarrhea or worsening IBS symptoms, blood pressure is under control and if we have to will titrate lisinopril up to 10. Her pulse rate is running in the 80s and 90s she is not bradycardic anymore pulse ox early this morning was still like in the low 90s with rest probably from her pain meds and management. 03/21/2024: She is doing slightly better with physical therapy still require more help and expected not been able to move independently, pain is under control currently does not require much for pain management still on hydrocodone orally. Blood pressure remain well-controlled does not require any change or increase medication, when patient sleep apparently her pulse ox dropped down to the bed there is a slight possibility of apnea but again this is mostly with pain management might be suppression related to medication. Still final plan is to continue physical therapy and prepare for getting patient to go to subacute r ehab as early as tomorrow. 03/22/2024: She is doing very well blood pressure is 126/69 with pulse rate of 88 pulse ox 92% on room air, patient's pain is well-controlled currently require minimal dose of hydrocodone to keep her symptoms under control. Patient is already on home meds, still slightly constipated will continue fiber and stool softener. She is stable enough to be discharged to subacute rehab today we will continue aspirin as an anticoagulation but resume all her home meds. 03/23/2024--patient was seen and examined today. Vital stable. No new labs today. Awaiting placement to subacute rehab. Assessment and plan: _Post direct anterior total hip arthroplasty: Successful surgery with no complications so far and doing very well. _Pain management: Require minimum dose of hydrocodone which should be continued for the next week or 2. _Hyperlipidemia: Resume simvastatin 10 mg a day. _History of hypertension: Remain on lisinopril 5 mg a day blood pressure is well-controlled. _Chronic pancreatitis and IBS: Has been doing much better on dicyclomine and Creon. _Chronic depression and anxiety attack with mild behavioral problem: Has been very well-controlled for long time on Risperdal along with alprazolam and sertraline. Patient seen psychiatry service through [facility]. _Bradycardia: She is not symptomatic pulse is fluctuated at this point with pain but not any slower. _Hyperglycemia: Continue patient on diet control A1c is around around 6. _Chronic pain syndrome with worsening pain postsurgery, patient will be on smaller dose of hydrocodone when discharged. _Anticoagulation: Was initiate aspirin protocol by orthopedics with aspirin 325 mg twice a day. _Severe GERD/GI prophylaxis: Remain on omeprazole 20 mg a day. Discharge planning: Patient hopefully will be able to go to subacute rehab today which will be there for 1 to 2 weeks before going back home with her caregiver. DVT prophylaxis: Per orthopedic. PHYSICAL EXAMINATION: GENERAL: The patient is A&O x3, NAD HEENT: EOMI, Sclerae anicteric, Moist Mucous membranes Neck: Supple, Non tender, No JVD PULMONARY: Equal breath souds B/L, No wheezing, No crackles. CARDIOVASCULAR: S1, S2 present. No murmurs, rubs, or gallops. ABDOMEN: Soft, nontender, nondistended, normoactive bowel sounds. No guarding or rebound tenderness. MUSCULOSKELETAL: No edema, No cyanosis. No clubbing. Normal ROM. Intact pe ripheral pulses. EXTREMITIES: No cyanosis, clubbing, or pedal edema. NEUROLOGICAL: CN 2-12 grossly intact. No FND Skin: No Rash REVIEW OF SYSTEMS: CONSTITUTIONAL: No fever or chills. CARDIOVASCULAR: No chest pain, palpitations or syncope. PULMONARY: No shortness of breath, no cough, sore throat. GASTROINTESTINAL: No nausea, vomiting, diarrhea, abdominal pain. : No Dysuria, urgency, frequency. Extremities: No edema. NEUROLOGICAL: No headaches, no weakness, or numbness Dictation was produced using [employer] dictation software. please excuse any grammatical, word or spelling errors. Objective - Vital Signs Vital signs: Vital Signs Temp 97.5 F L 03/23/24 12:28 Pulse 93 03/23/24 12:28 Resp 16 03/23/24 12:28 BP 128/77 03/23/24 12:28 Pulse Ox 96 03/23/24 12:28 FiO2 Intake & Output 03/22/24 03/23/24 03/23/24 18:59 06:59 18:59 Other: Voiding Method Toilet Toilet External Catheter External Catheter # Voids 1 1 - Labs CBC & Chem 7: 03/22/24 06:18
--- NOTE | 2024-03-24 08:39 | P.PN ---
Subjective Principal diagnosis: Status post right total hip arthroplasty on 03/19/2024 for severe right hip osteoarthritis. This is a 73-year-old female who is status post right total hip arthroplasty for severe osteoarthritis. This is postoperative day #5 and patient is seen and evaluated at bedside today. Patient states that she is doing well today and she denies any new complaints and denies any pain in her right hip. We are waiting on auth for transfer to SNF. Objective - Vital Signs Vital signs: Vital Signs Temp 98.2 F 03/24/24 06:57 Pulse 98 03/24/24 06:57 Resp 14 03/24/24 06:57 BP 156/94 03/24/24 06:57 Pulse Ox 98 03/24/24 06:57 FiO2 Intake & Output 03/23/24 03/24/24 03/24/24 18:59 06:59 18:59 Other: # Voids 1 1 # Bowel Movements 1 - Exam Patient is resting in chair. Patient is in no acute distress and is alert and able to answer questions. Calf is soft and nontender to palpation. Dressing is clean, dry, and intact. Operative femoral nerve function is grossly intact. Patient is able to plantarflex and dorsiflex the operative ankle and toes. Gross sensation to the operative extremity lower extremity is intact. - Labs CBC & Chem 7: 03/22/24 06:18 Assessment and Plan Assessment: Postop day #5 status post right total hip arthroplasty Plan: Continue routine postop care and pain control. Continue anticoagulation with aspirin. Weightbearing as tolerated with a walker. Leave dressing in place for 7 days from 03/19/2024. Appreciate input from internal medicine. Anticipate discharge to ECF in the next 24 hours.
[2024-03-24 10:03] LABS: Basophils # (A) 0.04 X 10*3/uL (0.00-0.10); Basophils % (A) 0.8 %; Eosinophils # (A) 0.26 X 10*3/uL (0.04-0.35); Eosinophils % (A) 5.5 %; HCT 31.2 % (37.2-46.3); HGB 9.9 g/dL (12.0-15.0); Lymphocytes # (A) 1.24 X 10*3/uL (0.90-5.00); Lymphocytes % (A) 26.2 %; MCH 29.5 pg (27.0-32.0); MCHC 31.7 g/dL (32.0-37.0); MCV 92.9 FL (80.0-97.0); Mean Platelet Volume 11.4 FL (9.5-12.2); Monocytes % (A) 10.6 %; NRBC Per 100 WBC 0 X 10*3/uL (0.00-0.01); Neutrophils # (A) 2.68 X 10*3/uL (1.80-7.70); Neutrophils % (A) 56.7 %; Platelet Count 214 X 10*3/uL (140-440); RBC 3.36 X 10*6/uL (4.10-5.20); WBC 4.73 X 10*3/uL (4.50-10.00)
--- NOTE | 2024-03-24 13:57 | P.PN ---
Subjective Progress Note Date: 03/24/24 Interval History: 73-year-old with active medical history of hypertension, hyperlipidemia, severe osteoarthritis, IBS, chronic gastritis and recurrent peptic ulcer disease, chronic depression, mild anxiety, chronic pain syndrome, mild PAD with amputation of right second toe secondary to gangrenous change and infection, chronic lower back pain, also patient is mentally challenging who has been living with her caregiver for the last 20+ years has been care for by her caregiver who dispenses medication and time help with all medication, diet, nutrition, cleaning and all daily activity. She developed to have much worsening pain and arthritis in the right hip patient was referred to see Dr. Benavidez and found to have advanced Degenerative arthritis with failure to conservative management was scheduled for elective anterior total hip arthroplasty of the right side surgery was done today successfully with Dr. Chester patient was in recovery for a period of time was transferred to the floor and has been doing well the pain is under control currently. Her home medication will resume patient is hemodynamically stable. 03/20/2024: Patient is doing slightly better her incision looks good no sign of induration swelling or drainage. She is all set her home meds vitals are stable pain is under control when she is not moving ambulating still a problem at this point. 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 There is no diarrhea or worsening IBS symptoms, blood pressure is under control and if we have to will titrate lisinopril up to 10. Her pulse rate is running in the 80s and 90s she is not bradycardic anymore pulse ox early this morning was still like in the low 90s with rest probably from her pain meds and management. 03/21/2024: She is doing slightly better with physical therapy still require more help and expected not been able to move independently, pain is under control currently does not require much for pain management still on hydrocodone orally. Blood pressure remain well-controlled does not require any change or increase medication, when patient sleep apparently her pulse ox dropped down to the bed there is a slight possibility of apnea but again this is mostly with pain management might be suppression related to medication. Still final plan is to continue physical therapy and prepare for getting patient to go to subacute r ehab as early as tomorrow. 03/22/2024: She is doing very well blood pressure is 126/69 with pulse rate of 88 pulse ox 92% on room air, patient's pain is well-controlled currently require minimal dose of hydrocodone to keep her symptoms under control. Patient is already on home meds, still slightly constipated will continue fiber and stool softener. She is stable enough to be discharged to subacute rehab today we will continue aspirin as an anticoagulation but resume all her home meds. 03/23/2024--patient was seen and examined today. Vital stable. No new labs today. Awaiting placement to subacute rehab. 03/24/2024atient was seen and examined today. Vital stable, was tachycardic last night, heart rate now controlled 98. Blood pressure stable. Afebrile. WBCs 4.7, hemoglobin 9.9, platelets 214. Pain is controlled. Assessment and plan: _Post direct anterior total hip arthroplasty: Successful surgery with no complications so far and doing very well. _Pain management: Require minimum dose of hydrocodone which should be continued for the next week or 2. _Hyperlipidemia: Resume simvastatin 10 mg a day. _History of hypertension: Remain on lisinopril 5 mg a day blood pressure is well-controlled. _Chronic pancreatitis and IBS: Has been doing much better on dicyclomine and C reon. _Chronic depression and anxiety attack with mild behavioral problem: Has been very well-controlled for long time on Risperdal along with alprazolam and sertraline. Patient seen psychiatry service through [facility]. _Bradycardia: She is not symptomatic pulse is fluctuated at this point with pain but not any slower. _Hyperglycemia: Continue patient on diet control A1c is around around 6. _Chronic pain syndrome with worsening pain postsurgery, patient will be on smaller dose of hydrocodone when discharged. _Anticoagulation: Was initiate aspirin protocol by orthopedics with aspirin 325 mg twice a day. _Severe GERD/GI prophylaxis: Remain on omeprazole 20 mg a day. Discharge planning: Patient hopefully will be able to go to subacute rehab once placement available which will be there for 1 to 2 weeks before going back home with her caregiver. DVT prophylaxis: Per orthopedic. PHYSICAL EXAMINATION: GENERAL: The patient is A&O x3, NAD HEENT: EOMI, Sclerae anicteric, Moist Mucous membranes Neck: Supple, Non tender, No JVD PULMONARY: Equal breath souds B/L, No wheezing, No crackles. CARDIOVASCULAR: S1, S2 present. No murmurs, rubs, or gallops. ABDOMEN: Soft, nontender, nondistended, normoactive bowel sounds. No guarding or rebound tenderness. MUSCULOSKELETAL: No edema, No cyanosis. No clubbing. Normal ROM. Intact peripheral pulses. EXTREMITIES: No cyanosis, clubbing, or pedal edema. NEUROLOGICAL: CN 2-12 grossly intact. No FND Skin: No Rash REVIEW OF SYSTEMS: CONSTITUTIONAL: No fever or chills. CARDIOVASCULAR: No chest pain, palpitations or syncope. PULMONARY: No shortness of breath, no cough, sore throat. GASTROINTESTINAL: No nausea, vomiting, diarrhea, abdominal pain. : No Dysuria, urgency, frequency. Extremities: No edema. NEUROLOGICAL: No headaches, no weakness, or numbness Dictation was produced using [employer] dictation software. please excuse any gra mmatical, word or spelling errors. Objective - Vital Signs Vital signs: Vital Signs Temp 98.2 F 03/24/24 06:57 Pulse 98 03/24/24 06:57 Resp 14 03/24/24 06:57 BP 156/94 03/24/24 06:57 Pulse Ox 98 03/24/24 06:57 FiO2 Intake & Output 03/23/24 03/24/24 03/24/24 18:59 06:59 18:59 Other: # Voids 1 1 # Bowel Movements 1 - Labs CBC & Chem 7: 03/24/24 05:16 Labs: Abnormal Lab Results - Last 24 Hours (Table) 03/24/24 Range/Units 05:16 RBC 3.36 L (4.10-5.20) X 10*6/uL Hgb 9.9 L (12.0-15.0) g/dL Hct 31.2 L (37.2-46.3) % MCHC 31.7 L (32.0-37.0) g/dL
--- NOTE | 2024-03-25 09:08 | P.DS ---
Providers Expected date of discharge: 03/25/24 Attending physician: Kj García Consults: 03/19/24 08:44 Consult Physician Routine Consulting Provider: Russell Lin Reason/Comments: medical management Do you want consulting provider notified?: Yes Primary care physician: Russell Lin - Discharge Diagnosis(es) (1) Osteoarthritis of right hip Status: Acute (2) S/P total right hip arthroplasty Status: Acute Hospital Course: This is a 73-year-old female with known history of degenerative arthritis of the right hip. The patient presented for evaluation as an outpatient. After discussion and consideration patient elects to proceed with total hip arthroplasty. The patient is seen preoperatively by Dr. García and medically cleared for surgery by their primary care physician. Patient is admitted to [facility] on 03/19/2024 for total hip arthroplasty. The procedure is performed without complication or sequelae. The patient is doing well postoperatively. Labs and vital signs are stable on day of discharge. On day of discharge patient's hip incision is healing well. There is minimal erythema. There is no drainage noted at this time. There is minimal soft tissue swelling to the hip and thigh. Patient has full foot and ankle motion without difficulty or pain. Calf is soft and nontender to palpation. Neurovascular status to the right lower extremity is intact. Patient is discharged to rehab in good condition. Please see med rec for accurate list of home medications. Plan - Discharge Summary Discharge Rx Participant: Yes New Discharge Prescriptions: New Sennosides [Senokot] 2 tab PO DAILY PRN #60 tablet PRN Reason: Constipation HYDROcodone/APAP 7.5-325MG [[place] 7.5-325] 1 - 2 tab PO Q6H PRN #32 tab PRN Reason: Pain Aspirin 325 mg PO BID #30 tab Aspirin 325 mg PO BID #60 tab ALPRAZolam [Xanax] 0.5 mg PO BID@0800,1200 #20 tab Continue Aspirin 81 mg PO DAILY Sertraline HCl [Zoloft] 50 mg PO DAILY lisinopriL [Zestril] 5 mg PO DAILY Dicyclomine [Bentyl] 20 mg PO AC-TID risperiDONE [RisperDAL] 2 mg PO HS Simvastatin [Zocor] 10 mg PO HS Omeprazole 40 mg PO DAILY Multivit-Min/Iron/Folic/Lutein [Centrum Silver Women Tablet] 1 tab PO DAILY Cholecalciferol (Vitamin D3) [Vitamin D3 (5000 Iu)] 125 mcg PO DAILY risperiDONE [RisperDAL] 1.5 tab PO DAILY Fexofenadine HCl [Scarlet Allergy] 180 mg PO HS Acetaminophen Tab [Tylenol] 650 mg PO Q6H PRN PRN Reason: Pain Ondansetron Odt [Zofran ODT] 4 mg PO Q8HR PRN PRN Reason: Nausea Lipase/Protease/Amylase [[place] 24,000 Unit Capsule] 24,000 units PO 1200,1700,2200 Discontinued ALPRAZolam [Xanax] 0.5 mg PO BID@0800,1200 Discharge Medication List Aspirin 81 mg PO DAILY 02/05/18 [History] Dicyclomine [Bentyl] 20 mg PO AC-TID 02/05/18 [History] Sertraline HCl [Zoloft] 50 mg PO DAILY 02/05/18 [History] lisinopriL [Zestril] 5 mg PO DAILY 02/05/18 [History] Cholecalciferol (Vitamin D3) [Vitamin D3 (5000 Iu)] 125 mcg PO DAILY 02/11/20 [History] Multivit-Min/Iron/Folic/Lutein [Centrum Silver Women Tablet] 1 tab PO DAILY 02/11/20 [History] Omeprazole 40 mg PO DAILY 02/11/20 [History] Simvastatin [Zocor] 10 mg PO HS 02/11/20 [History] risperiDONE [RisperDAL] 2 mg PO HS 02/11/20 [History] risperiDONE [RisperDAL] 1.5 tab PO DAILY 04/13/20 [History] Acetaminophen Tab [Tylenol] 650 mg PO Q6H PRN 03/18/24 [History] Fexofenadine HCl [Scarlet Allergy] 180 mg PO HS 03/18/24 [History] Lipase/Protease/Amylase [[place] 24,000 Unit Capsule] 24,000 units PO 1200,1700,2200 03/18/24 [History] Ondansetron Odt [Zofran ODT] 4 mg PO Q8HR PRN 03/18/24 [History] Aspirin 325 mg PO BID #60 tab 03/19/24 [Rx] Sennosides [Senokot] 2 tab PO DAILY PRN #60 tablet 03/19/24 [Rx] HYDROcodone/APAP 7.5-325MG [[place] 7.5-325] 1 - 2 tab PO Q6H PRN #32 tab 03/21/24 [Rx] ALPRAZolam [Xanax] 0.5 mg PO BID@0800,1200 #20 tab 03/22/24 [Rx] Aspirin 325 mg PO BID #30 tab 03/22/24 [Rx] Follow up Appointment(s)/[facility]erral[facility]s): [facility]] - 1-2 Days ([facility] will call you to schedule your in home physical therapy visits. ) Kj García DO [Doctor of Osteopathic Medicine] - 2 Weeks Activity/Diet/Wound Care/Special Instructions: Weightbearing as tolerated with walker. Leave dressing intact. Dressing may be removed by home care nurse or by patient in 7 days. Then change dressing twice daily until follow up. May shower with initial dressing intact and after removal. If dressing become saturated, please remove. Please take aspirin 325mg twice daily for 30 days to prevent blood clots. Recommend use of compression stockings daily until follow up to help prevent swelling and blood clots. May remove at night before sleeping. Please follow-up with [facility] in 2 weeks and call with any questions or concerns, . Discharge Disposition: TRANSFER TO SNF/ECF
[2024-03-25 13:10] VITALS: BP 157/65; PULSE 86; RESP 19; TEMP 97.4
== END 2024-03-25 15:00 ==
LOC: OR 07:14 → 4SSUR 10:30 → OR 03-25 15:00
PROVIDERS: ATTEND Orthopaedic Surgery
CPT/HCPCS: 64447; 73501; 85025

== ENCOUNTER → 2024-05-28 | Outpatient (CLI) | payer MEDICARE, OTHER ==
--- NOTE | 2024-05-28 09:54 | US ---
EXAMINATION TYPE: US abdomen complete DATE OF EXAM: 05/28/2024 COMPARISON: MR pancreas not 05/22/2020, CT 2019 CLINICAL INDICATION: Female, 73 years old with history of R10.9 ABD PAIN; TECHNIQUE: Grayscale and color Doppler imaging of the abdomen was performed. FINDINGS: EXAM MEASUREMENTS: Liver Length: 14.6 cm Gallbladder Wall: n/a CBD: 0.5 cm Spleen: 8.6 cm Right Kidney: 11.1 x 5.2 x 5.0 cm Left Kidney: 9.8 x 5.1 x 4.4 cm Pancreas: tail obscured by overlying midline bowel gas Liver: wnl Gallbladder: not seen, patient unsure if surgically removed or not CBD: wnl Spleen: visualized portions wnl, limited by overlying bowel gas Right Kidney: hydronephrosis Left Kidney: wnl Upper IVC: wnl Abd Aorta: proximal portion borderline ectatic, mid and distal portions wnl The liver is homogenous. The intrahepatic portion of the IVC and proximal abdominal aorta are within normal limits. Gallbladder is not visualized. Common bile duct is unremarkable. The visualized port ions of the pancreas are homogenous. The spleen is unremarkable. Right-sided hydronephrosis demonstr ated. No shadowing calculi or renal lesion distally identified. No left hydronephrosis or renal lesio ns are identified. IMPRESSION: 1. Moderate right hydronephrosis redemonstrated from prior CT 2019. 2. Gallbladder is not visualized and may be surgically absent. Correlate with surgical history. [facility], , 05/28/2024 9:51 AM
== END | disposition home or self-care (01) ==
LOC: RADUSWWP 07:37
PROVIDERS: ATTEND Internal Medicine Geriatric Medicine
DX: N13.30 Unspecified hydronephrosis (principal); R10.9 Unspecified abdominal pain
CPT/HCPCS: 76700

== ENCOUNTER → 2024-06-14 | Outpatient (CLI) | payer MEDICARE, OTHER ==
--- NOTE | 2024-06-14 23:04 | MR ---
EXAMINATION TYPE: MR knee RT wo con DATE OF EXAM: 06/14/2024 COMPARISON: NONE HISTORY: right knee pain, locking, and swelling for 6 weeks. Unilateral left arthritis. TECHNIQUE: Multiplanar, multisequence images of the knee is performed without IV contrast. FINDINGS: MEDIAL MENISCUS: Horizontal oblique signal posterior horn does not definitively extend to articular s urface. LATERAL MENISCUS: Lateral extrusion lateral meniscus. Deformity of the anterior horn. CRUCIATE LIGAMENTS: The anterior cruciate ligament is intact. There is at least partial tearing of th e distal posterior cruciate ligament near posterior tibial insertion. COLLATERAL LIGAMENTS: The medial collateral ligament is intact and unremarkable. There is tear of the iliotibial band and lateral collateral ligament proper. Ill-defined fluid at this level is noted EXTENSOR MECHANISM: Visualized quadriceps and patellar tendons are intact. EFFUSION: Moderate to large size suprapatellar joint effusion. POPLITEAL CYST: Tiny popliteal/rod cyst. TRICOMPARTMENT SPACES: Severe patellofemoral joint narrowing and moderate to severe spurring. Moderat e to severe spurring medial and lateral tibiofemoral compartments with at least moderate narrowing mo st prominent laterally.. CARTILAGE: Full-thickness chondromalacia patella. Full-thickness cartilaginous loss lateral tibiofemo ral compartment. BONE MARROW SIGNAL: Heterogeneous diminished T1 and increased T2 signal lateral aspect of the tibial plateau. Areas of heterogeneous increased T2 signal throughout the posterior patella and the anterior distal femur. OTHER: No additional significant abnormality is appreciated. IMPRESSION: 1. Fairly severe degenerative changes are present patellofemoral and lateral tibiofemoral compartment s as detailed above. 2. Full-thickness tear anterior horn of the lateral meniscus. 3. Significant tear of the lateral collateral ligament complex. 4. Moderate to large-size suprapatellar joint effusion. 5. Intrasubstance tear posterior horn medial meniscus. [facility], , 06/14/2024 11:02 PM
== END | disposition home or self-care (01) ==
LOC: RADMRIMAIN 15:21
PROVIDERS: ATTEND Orthopaedic Surgery
DX: S83.421A Sprain of lateral collateral ligament of right knee, initial encounter (principal); M17.11 Unilateral primary osteoarthritis, right knee; M23.8X1 Other internal derangements of right knee

== ENCOUNTER → 2024-07-10 | Outpatient (CLI) | payer MEDICARE, OTHER ==
[2024-07-10 12:09] LABS: African American GFR (CKD) 81 (>60 ml/min/1.73 sqM); Blood Urea Nitrogen 25 mg/dL (7-17); Non-African American GFR(CKD) 70 (>60 ml/min/1.73 sqM)
--- NOTE | 2024-07-10 15:50 | CT ---
EXAMINATION TYPE: CT abdomen pelvis wo/w con DATE OF EXAM: 07/10/2024 HISTORY: hydronephrosis CT DLP: 865.6mGycm Automated Exposure Control for Dose Reduction was Utilized. CONTRAST: CT scan of the abdomen and pelvis is performed without oral and without and with IV Contrast, patient injected with 100 mL of Isovue 300. COMPARISON: Prior CT abdomen and pelvis February 11, [address] 2017 FINDINGS: LUNG BASES: Mild left basilar linear scarring. Stable small to tiny pericardial effusion LIVER/GB: Gallbladder not seen and presumed surgically absent. PANCREAS: Persistent 1.0 cm low dense lesion in the distal pancreatic body axial image 32 favoring t hinwall cyst or cystic lesion unchanged from 2020 study suggesting benign etiology. SPLEEN: No significant abnormality is seen. ADRENALS: No significant abnormality is seen. KIDNEYS: Noncontrast images show no renal calculi bilaterally. Postcontrast images show symmetric cor tical medullary uptake and excretion. No left-sided hydronephrosis. Persistent moderate to severe rig ht-sided hydronephrosis not significantly changed back to 2017 CT. No hydroureter. BOWEL: Mild/moderate diffuse colonic fecal prominence. No abnormal small or large bowel dilatation. UTERUS/ADNEXA: Suboptimal evaluated due to right hip surgery. LYMPH NODES: No greater than 1cm abdominal or pelvic lymph nodes are appreciated. OSSEOUS STRUCTURES: Metallic hardware from total right hip arthroplasty is now present, this causes s treak artifact somewhat limiting evaluation of pelvic structures. Dextroconvex scoliosis centered at L4 level is redemonstrated. There is grade 1 anterolisthesis L4 on L5. There is moderate to severe di sc space narrowing with vacuum disc phenomenon at the left L4-L5 level. OTHER: No significant additional abnormality is seen. IMPRESSION: Persistent moderate to severe right-sided hydronephrosis without delayed excretion and no hydroureter. Suspect UPJ stricture or stenosis. No significant change from 2017 CT. [facility], , 07/10/2024 3:47 PM
== END | disposition home or self-care (01) ==
LOC: RADCTMAIN 11:27 → EEVIPCON 13:00
PROVIDERS: ATTEND Urology
DX: N13.30 Unspecified hydronephrosis (principal)
CPT/HCPCS: 82565; 84520; 74178; 36415; Q9967

== ENCOUNTER → 2024-07-30 | Outpatient (CLI) | payer MEDICARE, OTHER ==
[2024-07-30 13:34] LABS: INR 0.9 (<1.2); Partial Thromboplastin Time 23.6 sec (22.0-30.0); Prothrombin Time 10.3 sec (10.0-12.5)
[2024-07-30 19:25] LABS: Basophils # (A) 0.03 X 10*3/uL (0.00-0.10); Basophils % (A) 0.6 %; Eosinophils # (A) 0.12 X 10*3/uL (0.04-0.35); Eosinophils % (A) 2.4 %; HCT 39.3 % (37.2-46.3); HGB 12.2 g/dL (12.0-15.0); Immature Grans, Automated 0 %; Lymphocytes # (A) 1.13 X 10*3/uL (0.90-5.00); Lymphocytes % (A) 22.8 %; MCH 27.7 pg (27.0-32.0); MCV 89.1 FL (80.0-97.0); Mean Platelet Volume 11.6 FL (9.5-12.2); Monocytes # (A) 0.31 X 10*3/uL (0.20-1.00); Monocytes % (A) 6.3 %; NRBC Per 100 WBC 0 X 10*3/uL (0.00-0.01); Neutrophils # (A) 3.37 X 10*3/uL (1.80-7.70); Neutrophils % (A) 67.9 %; Platelet Count 255 X 10*3/uL (140-440); RBC 4.41 X 10*6/uL (4.10-5.20); RDW 14.3 % (11.5-14.5); WBC 4.96 X 10*3/uL (4.50-10.00)
[2024-07-30 19:57] LABS: ALT 19 U/L (8-44); AST 18 U/L (13-35); Albumin 4.1 g/dL (3.8-4.9); Albumin/Globulin Ratio 1.46 Ratio (1.60-3.17); Alkaline Phosphatase 89 U/L (41-126); BUN/Creat Ratio 33.88 Ratio (12.00-20.00); Blood Urea Nitrogen 27.1 mg/dL (9.0-27.0); Calcium 10.1 mg/dL (8.7-10.3); Carbon Dioxide 27.6 mmol/L (21.6-31.8); Chloride 101 mmol/L (96-109); Globulin 2.8 g/dL (1.6-3.3); Glucose 90 mg/dL (70-110); Potassium 5.2 mmol/L (3.5-5.5); Sodium 137 mmol/L (135-145); Total Bilirubin 0.2 mg/dL (0.3-1.2); Total Protein 6.9 g/dL (6.2-8.2)
== END | disposition home or self-care (01) ==
LOC: LABPAT 12:21
PROVIDERS: ATTEND Orthopaedic Surgery
DX: Z01.818 Encounter for other preprocedural examination (principal); Z22.322 Carrier or suspected carrier of Methicillin resistant Staphylococcus aureus; M17.11 Unilateral primary osteoarthritis, right knee
CPT/HCPCS: 80053; 85025; 85610; 85730; 87070

== ENCOUNTER 2024-08-26 05:34 | Day surgery (SDC) | payer MEDICARE, OTHER ==
[~2024-08-26 05:34] MED LIST changes: -HYDROmorphone 0.5 MG/0.5 ML SYRINGE IVP PRN; -LIDOCAINE 1% (10MG/ML) FOR IV START INTRADERMA PRN
[2024-08-26] MEDS ORDERED: LIDOCAINE 1% (10MG/ML) FOR IV START INTRADERMA PRN (05:38)
[2024-08-26] MEDS: ACETAMINOPHEN TAB 500 MG TAB PO PRN (06:26)
[2024-08-26] MEDS: MELOXICAM 7.5 MG TAB PO PRN (06:27)
[2024-08-26] MEDS: GABAPENTIN 300 MG CAP PO PRN (06:27)
[2024-08-26] MEDS: IV FLUID CONTINUATION 1,000 ML IV ONE (06:50)
[2024-08-26] MEDS: LACTATED RINGERS 1,000 ML IV SCH (06:50)
[2024-08-26] MEDS ORDERED: HYDROmorphone 0.5 MG/0.5 ML SYRINGE IVP PRN ×4 (07:00→09:01)
[2024-08-26] MEDS: ONDANSETRON 4 MG/2 ML VIAL IVP ONE (07:12)
[2024-08-26] MEDS ORDERED: SODIUM CHLORIDE 0.9% (PF) 10 ML VIAL ONE (07:14)
[2024-08-26] MEDS ORDERED: TRANEXAMIC 1,000 MG/100ML-NACL PREMIX BAG ONE (07:14)
[2024-08-26] MEDS ORDERED: fentaNYL (PF) 50 MCG/ML 2 ML AMP ONE (07:14)
[2024-08-26] MEDS ORDERED: ROPIVACAINE 5 MG/ML 30 ML VIAL ONE (07:14)
[2024-08-26] MEDS ORDERED: PROPOFOL 10 MG/ML 20 ML VIAL IV ONE (07:14)
[2024-08-26] MEDS ORDERED: DEXAMETHASONE SOD PHOSPHATE 4 MG/ML 1 ML VIAL ONE (07:14)
[2024-08-26] MEDS: ceFAZolin 1,000 MG in SODIUM CHLORIDE 0.9% 1,000 ML IRRIGATION ONE (07:20)
[2024-08-26] MEDS: MIDAZOLAM 2 MG/2 ML VIAL IV STA (07:21)
--- NOTE | 2024-08-26 07:39 | P.ANPRN ---
Procedure Note - Anesthesia - Nerve Block Performed Right Adductor Canal Infusion Time Out Performed: Yes Date of Procedure: 08/26/24 Procedure Start Time: 06:53 Procedure Stop Time: 06:59 Location of Patient: PreOp Indication: Acute Post-Operative Pain, Requested by Surgeon Sedation Type: Sedate with meaningful contact maintained Preparation: Sterile Prep, Sterile Dressing Position: Supine Catheter: Indwelling Needle Gauge: 18 Ultrasound used to visualize needle placement: Yes Ultrasound used to observe medication spread: Yes Injectate: 0.5% Ropivacaine (see comment for volume) (20 mL +10 mL of normal saline +4 mg dexamethasone) Blood Aspirated: No Pain Paresthesia on Injection Noted: No Resistance on Injection: Normal Image Stored and Saved: Yes Events: Uneventful and Well Tolerated
--- NOTE | 2024-08-26 07:40 | P.ANPRN ---
Procedure Note - Anesthesia - Nerve Block Performed Right iPack Single Time Out Performed: Yes Date of Procedure: 08/26/24 Procedure Start Time: 07:00 Procedure Stop Time: 07:05 Indication: Acute Post-Operative Pain, Requested by Surgeon Sedation Type: Sedate with meaningful contact maintained Preparation: Sterile Prep Position: Left Lateral Needle Types: Pajunk Needle Gauge: 21 Ultrasound used to visualize needle placement: Yes Ultrasound used to observe medication spread: Yes Injectate: 0.5% Ropivacaine (see comment for volume) (20 mL +10 mL of normal saline +4 mg dexamethasone) Blood Aspirated: No Pain Paresthesia on Injection Noted: No Resistance on Injection: Normal Image Stored and Saved: Yes Events: Uneventful and Well Tolerated
--- NOTE | 2024-08-26 08:29 | P.OP ---
Date of Procedure: 08/26/24 Preoperative Diagnosis: Severe osteoarthritis right knee Postoperative Diagnosis: Severe osteoarthritis right knee Procedure(s) Performed: Right total knee arthroplasty Implants: [employer] II CR Oxinium cruciate retaining femoral component size 4, right [employer] nonporous tibial baseplate size 3, right [employer] II, XLPE Deep Dished articular insert, size 12 mm, Size 3-4, right [employer] Angélica II resurfacing patellar component, oval, 29 mm All components were cemented using Palacos R bone cement The articulation is Oxinium on polyethylene Anesthesia: spinal Surgeon: Kj García Surgical Instrument Repair Specialist #1: Kaylan Blackmon Estimated Blood Loss (ml): 50 Pathology: none sent Condition: stable Disposition: PACU Indications for Procedure: The patient's knee is end-stage, and conservative management has failed. The operation of knee replacement has been discussed at length in the office, as well as potential risks and complications. These are inclusive of, but not limited to: Infection, bleeding, scarring, discomfort, stiffness, blood vessel and nerve damage, need for further surgery, failure to relieve symptoms, persistence, recurrence, or worsening of problems, loosening, dislocation, wear, blood clot, pulmonary embolism, , gait dysfunction, stiffness, and other risks as discussed in the office. Patient elects to proceed and the consent form has been signed. Operative Findings: The operative findings are consistent with severe osteoarthritis of the right knee Description of Procedure: The patient was seen in the preoperative area, the consent was reviewed and the operative site was marked with a skin marker. The patient verified the procedure and the operative site. An adductor canal pain catheter and an iPACK block were placed by anesthesia in the preoperative area. The patient was then brought to the operating room and positioned on the operating room table in the supine position. Preoperative antibiotics and a gram of tranexamic acid were given intravenously. A spinal anesthetic was administered by the anesthesia department. Care was taken to make sure that all pressure points were adequately padded. A tourniquet was placed on the upper thigh and the lower extremity was prepped with ChloraPrep and draped in usual sterile fashion. A universal time-out was then performed which confirmed the patient's name, surgical site, ALLERGIES, and consent. The lower extremity was then exsanguinated and tourniquet was inflated to 250 mmHg. A standard anterior midline approach to the knee was performed. The skin and subcutaneous tissue were sharply dissected down to the patellar tendon. A medial parapatellar arthrotomy was then performed. The knee was then extended, the patellar was everted, and the knee was flexed. The infra-patellar fat pad was removed in order to enhance exposure. The anterior horns of both menisci were excised, and a release was performed to the posterior medial aspect of the knee. On gross visual inspection, there was complete loss of articular cartilage in the medial and patellofemoral joint spaces. There was also significant cartilage damage in the lateral compartment. There were multiple periarticular osteophytes globally about the knee which were then removed with a Ronguer. The femoral canal was then opened with the 9.5 mm intramedullary drill. The 8 mm intramedullary vignesh was then inserted into the femoral canal with the distal femoral cutting guide set for 5 of valgus. The distal femoral cutting block was then pinned in place. The intramedullary vignesh was then removed, and the distal femur was then cut. The cutting block was then removed and the cut was checked for symmetry. The resected bone was then measured to confirm the appropriate distal femoral resection. Next, the sizing guide was then placed and set for 3 external rotation based off of the epicondylar axis and [place]'s line. Pins were then placed and the drill holes, and the femur was sized with the sizing stylus. The pins were then removed, and the sizing guide was then removed. The spikes of the appropriate size femoral block was then placed into the predrilled holes, and malleted into place. Two 45 mm pins were then placed into the fixation holes on the cutting block. An hammad wing was then used to ensure there would be no notching with the anterior cut. The anterior condyles were cut without notching. The anterior chord cut was then performed, followed by the posterior cut, posterior chamfer cut, and the anterior chamfer cut. The collateral ligaments were protected during the entire process. The cutting block was then removed. Any remaining bone and osteophytes were removed from the femur with a Ronguer. Attention was then directed to the tibia. The remaining ACL was removed with a Ronguer, and the tibia was then gently subluxed forward with a large bent knee retractor. Any remaining menisci were excised. The posterior lateral corner was cauterized in order to coagulate the lateral geniculate artery. The extra medullary tibial cutting guide was then placed, set for the appropriate rotation, slope, and depth of resection. The proximal tibia cutting guide was then pinned in place. Proximal tibia was then cut and sized. A curved osteotome was then used to remove any posterior osteophytes from the distal femur. The femoral trial was placed. A narrow saw blade was then used to remove the anterior intracondylar femoral bone. The CR notch trial was then placed. The tibial trial was placed with the appropriate-sized insert. The knee was able to fully extend and flex to 130 and was stable throughout all range of motion. The knee was then extended and the patella was everted. Patella was then measured, and then using an osteotomy guide, the patella was cut at the appropriate level. The patellar component was sized. The patellar drill guide was placed and the patella was drilled. The patella trial was then placed. The knee was then taken through range of motion with the patella trial and the patella tracked normally using the no thumbs technique. The patella trial was then removed. The knee was then flexed and lug holes were drilled through the femoral trial and the femoral trial was then removed. The tibial was then re- exposed, and the tibial broach guide was then pinned in place after it was set for the appropriate rotation to allow for the most coverage without overhang. The tibia was then reamed and broached. The femoral canal was plugged with autologous bone. The cut surfaces of bone were then irrigated with pulsatile lavage. The knee was also irrigated with Irrisept solution. The components were then opened, the cement was mixed. Cement was placed on the backside of the femoral, tibial, and patellar components. Cement was then applied to the tibial surface and pressurized into the surface using finger pressurization technique. The tibial component was then applied and excess cement was removed after it was impacted securely noted to be flush with the cut surface. In similar fashion, the cement was applied to the cut femoral surface, pressurized and using finger pressurization the component was impacted in place. Excess cement was removed. The polyethylene spacer was then implanted and locked into position. Patellar component was then applied in a similar technique and the patellar clamp was used to hold patella in place while the cement hardened. The knee was held in full extension while the cement hardened. Once the cement had fully hardened, the knee was reinspected. Any other cement extrusion was removed the final range of motion testing showed range of motion from 0-130 with excellent stability, both medial and laterally and appropriate alignment of the leg. Patella tracked normally. After the cemented hardened, the tourniquet was released and hemostasis was obtained. A second gram of transexamic acid was given intravenously. The knee was again irrigated. The knee was again taken through range of motion and found to be stable throughout all range of motion of 0-130, and the patella tracked normally. The fascia was then closed with 0 Vicryl followed by #2 strata fix suture. The subcutaneous tissue was closed with 3-0 Vicryl and 3-0 monocryl. Exofin glue was used for the skin and placed with the knee in flexion. After the glue had dried, and Optafoam silver impregnated dressing was applied. A lightly compressive dressing was applied using web roll and Jonathan wrap. Patient was then transferred to the stretcher and taken to recovery room in stable condition. Sponge and needle counts were correct. The medical assistant secretary DENNIS Domínguez was required due the complexity surgery and the need for a skilled surgical scrub technologist. She assisted in positioning, draping, retraction, and closure of the wound.
[2024-08-26] MEDS ORDERED: NALOXONE 0.4 MG/ML 1 ML VIAL IV PRN (09:01)
[2024-08-26] MEDS ORDERED: MAGNESIUM HYDROXIDE 2,400 MG/30 ML CUP PO PRN (09:01)
[2024-08-26] MEDS ORDERED: bisacodyL 10 MG SUPP RECTAL PRN (09:01)
[2024-08-26] MEDS ORDERED: NA PHOS,M-B/NA PHOS,DI-BA 133 ML ENEMA RECTAL PRN (09:01)
[2024-08-26] MEDS: ROPIVACAINE 1,100 MG, SODIUM CHLORIDE 0.9% 500 ML 330 ML, EMPTY PAIN BALL 1 EACH MISCELLANE PRN (09:27)
--- NOTE | 2024-08-26 09:49 | XR ---
EXAMINATION TYPE: XR knee limited RT DATE OF EXAM: 08/26/2024 9:40 AM COMPARISON: None. CLINICAL INDICATION: Female, 73 years old with history of Evaluation for Postop abnormality and align ment, pain TECHNIQUE: 2 view(s) obtained. FINDINGS: Tibial and femoral components have been placed. No acute fracture or dislocation evident. No signific ant joint effusion. Postsurgical soft tissue changes are present. IMPRESSION: 1. No acute fracture post right knee replacement [facility], , 08/26/2024 9:47 AM
[2024-08-26] MEDS: DEXAMETHASONE SOD PHOSPHATE 4 MG/ML 1 ML VIAL IV ONE (10:57)
[2024-08-26] MEDS ORDERED: ANTI DIARRHEAL PO PRN (11:42)
[2024-08-26] MEDS: SODIUM CHLORIDE 0.9% 1,000 ML IV SCH (12:17)
[2024-08-26] MEDS: SERTRALINE 50 MG TAB PO SCH (12:17)
[2024-08-26] MEDS: PANTOPRAZOLE 40 MG TABLET PO SCH (12:18)
[2024-08-26] MEDS: ALPRAZolam 0.5 MG TAB PO SCH (12:18)
[2024-08-26] MEDS: SIMETHICONE 80 MG CHEWABLE PO SCH (12:18)
[2024-08-26] MEDS: DICYCLOMINE 20 MG TAB PO SCH (12:18)
[2024-08-26] MEDS: LIPASE 20,000/PROTEASE 63,000/AMYLASE 84,000 PO SCH (13:02)
--- NOTE | 2024-08-26 15:01 | P.CONS ---
History of Present Illness - Reason for Consult Consult date: 08/26/24 Medical management, status post right total knee arthroplasty - History of Present Illness This is a pleasant 73-year-old female who was admitted with orthopedic surgery status post right total knee arthroplasty this morning. Patient reports she follows with Dr. Lin in the outpatient setting with a past medical history of GERD, hyperlipidemia, hypertension, osteoarthritis, enlarged right kidney, IBS, mentally challenged, anxiety. Patient reports that he did undergo presurgical clearance prior to hospitalization here. On exam patient is in the postop period currently on 2 L via nasal cannula although oxygen saturations are 99% and reports does not wear oxygen outpatient. Patient denies any shortness of breath. Wean as tolerated and would recommend incentive spirometer use at least 10 times every hour while awake. Will follow-up on repeat labs for further evaluation. Home medications reviewed and resumed as appropriate. Family at the bedside with concerns of discharge planning and was explained that we will be waiting for PT/OT therapy evaluation to assess her functionality prior to determining if she will be going home with home care and/or the possible need for ECF. Case management is consulted and pending. REVIEW OF SYSTEMS: CONSTITUTIONAL: No fever, no malaise, no fatigue. HEENT: No recent visual problems or hearing problems. Denied any sore throat. CARDIOVASCULAR: No chest pain, orthopnea, PND, no palpitations, no syncope. PULMONARY: No shortness of breath, no cough, no hemoptysis. GASTROINTESTINAL: No diarrhea, no nausea, no vomiting, no abdominal pain. NEUROLOGICAL: No headaches, no weakness, no numbness. HEMATOLOGICAL: Denies any bleeding or petechiae. GENITOURINARY: Denies any burning micturition, frequency, or urgency. MUSCULOSKELETAL/RHEUMATOLOGICAL: Denies any joint pain, swelling, or any muscle pain. ENDOCRINE: Denies any polyuria or polydipsia. The rest of the 14-point review of systems is negative. PHYSICAL EXAMINATION: GENERAL: The patient is alert and oriented x3, not in any acute distress. Well developed, well nourished. Mentally delayed HEENT: Pupils are round and equally reacting to light. EOMI. No scleral icterus. No conjunctival pallor. Normocephalic, atraumatic. No pharyngeal erythema. No thyromegaly. CARDIOVASCULAR: S1 and S2 present. No murmurs, rubs, or gallops. PULMONARY: Diminished breath sounds bilaterally otherwise chest is clear to auscultation, no wheezing or crackles. ABDOMEN: Soft, nontender, non-distended, normoactive bowel sounds. No palpable organomegaly. MUSCULOSKELETAL: No joint swelling or deformity. EXTREMITIES: No cyanosis, clubbing, or pedal edema. Right knee surgical dressing is dry and intact with some minimal swelling noted NEUROLOGICAL: Gross neurological examination did not reveal any focal deficits. Diffusely weak SKIN: No rashes. Assessment: Status post right total knee arthroplasty, postop day 0 History of GERD Hyperlipidemia Hypertension Osteoarthritis Renal disease with an enlarged right kidney History of IBS Mentally challenged History of anxiety GI prophylaxis DVT prophylaxis Full code Plan: Patient was admitted under orthopedic status post right total knee arthroplasty today. Patient is doing well and is alert answering questions appropriately, does drift off easily. Recommend limiting IV narcotic use if possible Patient has been instructed to continue with incentive spirometer use at least 10 times every hour while awake Home medications reviewed and resumed as appropriate. Family member at the bedside/caregiver reported she took her morning doses of blood pressure medication today. Will hold blood pressure medication for now and monitor for any postop hypotension Awaiting PT/OT therapy evaluation with case management on consult, likely on 08/27/2024 We will continue to follow with orthopedics during hospitalization. Thank you kindly for this consultation. The impression and plan of care has been dictated by Fabby Archer Nurse Prac titioner as directed. Dr. Vanessa MD I have performed a history and examination and MDM of this patient, discussed the same with the dictator, and agree with the dictator's assessment and plan as written ,documented as a scribe. Based on total visit time, I have performed more than 50% of the visit. 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 rt hip replaced Past Anesthesia/Blood Transfusion Reactions: No Reported Reaction Additional Past Anesthesia/Blood Transfusion Reaction / Comm: Has never had anesthesia. Past Psychological History: Anxiety Additional Psychological History / Comment(s): Mentally challenged. Has a guardian. Patient is fairly independent. Smoking Status: Never smoker Past Alcohol Use History: None Reported Past Drug Use History: None Reported - Past Family History Mother Additional Family Medical History / Comment(s): Family history unknown. Medications and Allergies Home Medications Medication Instructions Recorded Confirmed Type Aspirin 81 mg PO DAILY 02/05/18 08/26/24 History Dicyclomine [Bentyl] 20 mg PO AC-TID 02/05/18 08/26/24 History Sertraline HCl [Zoloft] 50 mg PO DAILY 02/05/18 08/26/24 History lisinopriL [Zestril] 5 mg PO DAILY 02/05/18 08/26/24 History Cholecalciferol (Vitamin D3) 125 mcg PO DAILY 02/11/20 08/26/24 History [Vitamin D3 (5000 Iu)] Multivit-Min/Iron/Folic/Lutein 1 tab PO DAILY 02/11/20 08/26/24 History [Centrum Silver Women Tablet] Omeprazole 80 mg PO DAILY 02/11/20 08/26/24 History Simvastatin [Zocor] 10 mg PO HS 02/11/20 08/26/24 History risperiDONE [RisperDAL] 2 mg PO HS 02/11/20 08/26/24 History risperiDONE [RisperDAL] 1.5 tab PO DAILY 04/13/20 08/26/24 History Acetaminophen Tab [Tylenol] 650 mg PO Q6H PRN 03/18/24 08/26/24 History Lipase/Protease/Amylase [Creon Dr 24,000 units PO 1200,1700,2200 03/18/24 08/26/24 History 24,000 Unit Capsule] Ondansetron Odt [Zofran ODT] 4 mg PO Q8HR PRN 03/18/24 08/26/24 History ALPRAZolam [Xanax] 0.5 mg PO BID@0800,1200 #20 tab 03/22/24 08/26/24 Rx Anti Diarrheal Powder 1 scoop PO DAILY PRN 08/22/24 08/26/24 History Gas Relief Pill (Unk) 1 dose PO DAILY 08/22/24 08/26/24 History Mirabegron [Myrbetriq] 25 mg PO DAILY 08/22/24 08/26/24 History Aspirin 325 mg PO BID #60 tab 08/26/24 Rx HYDROcodone/APAP 5-325MG [[place] 1 - 2 tab PO Q6HR PRN #32 tab 08/26/24 Rx 5-325] Sennosides [Senokot] 2 tab PO DAILY PRN #60 tablet 08/26/24 Rx Allergies Allergy/AdvReac Type Severity Reaction Status Date / Time No Known Allergies Allergy Verified 08/26/24 06:02 Physical Exam Vitals: Vital Signs Temp Pulse Pulse Resp BP BP Pulse Ox 08/26/24 10:45 84 16 128/68 99 08/26/24 10:30 85 15 118/64 99 08/26/24 10:15 84 16 116/61 99 08/26/24 10:00 86 16 118/59 99 08/26/24 09:45 86 15 118/72 97 08/26/24 09:29 83 16 115/66 98 08/26/24 09:14 83 15 106/65 96 08/26/24 08:59 97 F L 93 16 115/68 93 L 08/26/24 07:10 88 17 163/85 100 08/26/24 06:11 97.2 F L 109 H 18 158/71 99 Intake and Output 08/25/24 08/26/24 08/26/24 22:59 06:59 14:59 Intake Total 200 651 Output Total 50 Balance 200 601 Intake: IV 200 651 Output: Estimated Blood Loss 50 Other: Weight 66.7 kg
[2024-08-26] MEDS: SENNOSIDES-DOCUSATE SODIUM 1 EACH TAB PO SCH (20:20)
[2024-08-26] MEDS: ASPIRIN 325 MG TAB PO SCH (20:21)
[2024-08-26] MEDS: risperiDONE 1 MG TAB PO SCH (20:21)
[2024-08-26] MEDS: ATORVASTATIN 10 MG TAB PO SCH (20:21)
[2024-08-27] MEDS: HYDROcodone/APAP 5-325MG 1 EACH TAB PO PRN (01:01)
[2024-08-27 04:18] LABS: Basophils % (A) 0 %; Eosinophils % (A) 0 %; HCT 32.1 % (34.0-46.0); HGB 10.2 gm/dL (11.4-16.0); Hypochromasia Moderate; Lymphocytes # (A) 0.7 k/uL (1.0-4.8); Lymphocytes % (A) 9 %; MCH 28.8 pg (25.0-35.0); MCHC 31.7 g/dL (31.0-37.0); MCV 90.9 fL (80.0-100.0); Mean Platelet Volume 8.8; Monocytes # (A) 0.6 k/uL (0-1.0); Monocytes % (A) 8 %; Neutrophils # (A) 6.6 k/uL (1.3-7.7); Neutrophils % (A) 82 %; Platelet Count 250 k/uL (150-450); RBC 3.53 m/uL (3.80-5.40); RDW 14.2 % (11.5-15.5)
[2024-08-27] MEDS: CHOLECALCIFEROL 125 MCG (5000 IU) TABLET PO SCH (07:34)
[2024-08-27] MEDS: MULTIVITAMINS, THERA 1 EACH TAB PO SCH (07:34)
[2024-08-27] MEDS: ONDANSETRON 4 MG/2 ML VIAL IVP PRN (07:34)
[2024-08-27] MEDS: risperiDONE 0.5 MG TAB PO SCH (07:36)
--- NOTE | 2024-08-27 07:56 | P.PN ---
Progress Note - Text Adequate analgesia. No anesthetic complication.
[2024-08-27 08:42] LABS: BUN/Creat Ratio 35.86 Ratio (12.00-20.00); Blood Urea Nitrogen 25.1 mg/dL (9.0-27.0); Calcium 9.1 mg/dL (8.7-10.3); Carbon Dioxide 27.5 mmol/L (21.6-31.8); Chloride 105 mmol/L (96-109); Glucose 103 mg/dL (70-110); Magnesium 1.6 mg/dL (1.5-2.4); Potassium 4.6 mmol/L (3.5-5.5); Sodium 140 mmol/L (135-145)
[2024-08-27] MEDS ORDERED: NON FORMULARY DRUG (Omeprazole [Omeprazole] 20 MG Capsule.Dr) PO SCH (09:00)
[2024-08-27] MEDS ORDERED: Magnesium Replacement Protocol 1 EACH MISC MISCELLANE PRN (09:28)
[2024-08-27] MEDS: MAGNESIUM SULFATE-D5W PMX 1 GM in DEXTROSE/WATER 1 100ML.BAG IVPB SCH (10:26)
[2024-08-27] MEDS: lisinopriL 5 MG TAB PO SCH (10:26)
--- NOTE | 2024-08-27 11:10 | P.PN ---
Subjective Progress Note Date: 08/27/24 This is a 73-year-old female who is status post right total knee arthroplasty. This is postoperative day #1 and patient is seen and evaluated at bedside today. Patient states that her pain is well-controlled and she was able to work with physical therapy today. Objective - Vital Signs Vital signs: Vital Signs Temp 97.9 F 08/27/24 07:40 Pulse 90 08/27/24 07:40 Resp 15 08/27/24 07:40 BP 131/79 08/27/24 07:40 Pulse Ox 97 08/27/24 07:40 FiO2 Intake & Output 08/26/24 08/27/24 08/27/24 18:59 06:59 18:59 Intake Total 651 Output Total 50 Balance 601 Weight 66.7 kg Intake: IV 651 Output: Estimated Blood Loss 50 Other: Voiding Method Toilet Toilet # Voids 2 3 - Exam Vital signs are stable. Patient is in no acute distress and is alert and oriented 3. Calf is soft and nontender to palpation. Dressing is clean, dry, and intact. Patient has full foot and ankle motion without pain or difficulty. Sensation intact. Neurovascular status and circulatory status are intact. - Labs CBC & Chem 7: 08/27/24 02:57 08/27/24 02:57 Labs: Abnormal Lab Results - Last 24 Hours (Table) 08/27/24 08/27/24 Range/Units 02:57 02:57 RBC 3.53 L (3.80-5.40) m/uL Hgb 10.2 L (11.4-16.0) gm/dL Hct 32.1 L (34.0-46.0) % Lymphocytes # 0.7 L (1.0-4.8) k/uL BUN/Creatinine Ratio 35.86 H (12.00-20.00) Ratio Assessment and Plan (1) Osteoarthritis of right knee Current Visit: Yes Status: Acute Code(s): M17.11 - UNILATERAL PRIMARY OSTEOARTHRITIS, RIGHT KNEE SNOMED Code(s): 986396571274832 (2) Status post total right knee replacement Current Visit: Yes Status: Acute Code(s): Z96.651 - PRESENCE OF RIGHT ARTIFICIAL KNEE JOINT SNOMED Code(s): 8322895021525 Plan: #1 Continue with routine postoperative care and pain control, leave dressing in place for 7 days. #2 Anticoagulation with aspirin. #3 Physical therapy today. #4 Appreciate input from internal medicine. #5 Anticipate discharge home with home care in the next 24-48 hours.
[2024-08-27] MEDS: ONDANSETRON ODT 4 MG TAB PO PRN (17:59)
--- NOTE | 2024-08-28 09:38 | P.PN ---
Subjective Progress Note Date: 08/27/24 - Reason for Consult Consult date: 08/26/24 Medical management, status post right total knee arthroplasty - History of Present Illness This is a pleasant 73-year-old female who was admitted with orthopedic surgery status post right total knee arthroplasty this morning. Patient reports she follows with Dr. Lin in the outpatient setting with a past medical history of GERD, hyperlipidemia, hypertension, osteoarthritis, enlarged right kidney, IBS, mentally challenged, anxiety. Patient reports that he did undergo presurgical clearance prior to hospitalization here. On exam patient is in the postop period currently on 2 L via nasal cannula although oxygen saturations are 99% and reports does not wear oxygen outpatient. Patient denies any shortness of breath. Wean as tolerated and would recommend incentive spirometer use at least 10 times every hour while awake. Will follow-up on repeat labs for further evaluation. Home medications reviewed and resumed as appropriate. Family at the bedside with concerns of discharge planning and was explained that we will be waiting for PT/OT therapy evaluation to assess her functionality prior to determining if she will be going home with home care and/or the possible need for ECF. Case management is consulted and pending. 08/27/2024 Patient is seen in follow-up today with no acute overnight issues. Patient reports her pain is moderate although is sitting up in the chair and worked with physical therapy. Patient has reported to walking at least 3 times. Patient with some nausea likely secondary to pain medications and will continue with supportive care. Plan is for patient to go to ECF for continued strength mobility with case management following. Patient is afebrile with no reports of chest pain or shortness of breath. Patient is medically stable once cleared by orthopedics. Review of systems: Constitutional: No reports of fatigue, fever, or chills Cardiovascular: No reports of chest pain or palpitations Respiratory: No reports of shortness of breath or cough GI: No reports of nausea, vomiting, or diarrhea : No reports of dysuria or retention Neurovascular: No reports of weakness or numbness All medications have been reviewed The rest of the 14-point review of systems is negative. PHYSICAL EXAMINATION: GENERAL: The patient is alert and oriented x3, not in any acute distress. Well developed, well nourished. Mentally delayed HEENT: Pupils are round and equally reacting to light. EOMI. No scleral icterus. No conjunctival pallor. Normocephalic, atraumatic. No pharyngeal erythema. No thyromegaly. CARDIOVASCULAR: S1 and S2 present. No murmurs, rubs, or gallops. PULMONARY: Diminished breath sounds bilaterally otherwise chest is clear to auscultation, no wheezing or crackles. ABDOMEN: Soft, nontender, non-distended, normoactive bowel sounds. No palpable organomegaly. MUSCULOSKELETAL: No joint swelling or deformity. EXTREMITIES: No cyanosis, clubbing, or pedal edema. Right knee surgical dressing is dry and intact with some minimal swelling noted NEUROLOGICAL: Gross neurological examination did not reveal any focal deficits. Diffusely weak SKIN: No rashes. Assessment: Status post right total knee arthroplasty, postop day 1 History of GERD Hyperlipidemia Hypertension Osteoarthritis Renal disease with an enlarged right kidney History of IBS Mentally challenged History of anxiety GI prophylaxis DVT prophylaxis Full code Plan: Patient was admitted under orthopedic status post right total knee arthroplasty. Patient reporting some nausea likely secondary to narcotic use and will continue with supportive care and Zofran as needed Patient has been instructed to continue with incentive spirometer use at least 10 times every hour while awake Home medications reviewed and resumed as appropriate. Resume blood pressure medication once blood pressures have improved Patient working with PT/OT therapy with plans on going to ECF and case management following, and will discuss further regarding discharge planning We will continue to follow with orthopedics during hospitalization. Thank you kindly for this consultation. The impression and plan of care has been dictated by Fabby Archer, Nurse Practitioner as directed. Dr. Vanessa MD I have performed a history and examination and MDM of this patient, discussed the same with the dictator, and agree with the dictator's assessment and plan as written ,documented as a scribe. Based on total visit time, I have performed more than 50% of the visit. Objective - Vital Signs Vital signs: Vital Signs Temp 97.9 F 08/27/24 07:40 Pulse 90 08/27/24 07:40 Resp 15 08/27/24 07:40 BP 131/79 08/27/24 07:40 Pulse Ox 97 08/27/24 07:40 FiO2 Intake & Output 08/26/24 08/27/24 08/27/24 18:59 06:59 18:59 Intake Total 651 Output Total 50 Balance 601 Weight 66.7 kg Intake: IV 651 Output: Estimated Blood Loss 50 Other: Voiding Method Toilet Toilet # Voids 2 3 - Labs CBC & Chem 7: 08/27/24 02:57 08/27/24 02:57 Labs: Abnormal Lab Results - Last 24 Hours (Table) 08/27/24 08/27/24 Range/Units 02:57 02:57 RBC 3.53 L (3.80-5.40) m/uL Hgb 10.2 L (11.4-16.0) gm/dL Hct 32.1 L (34.0-46.0) % Lymphocytes # 0.7 L (1.0-4.8) k/uL BUN/Creatinine Ratio 35.86 H (12.00-20.00) Ratio
--- NOTE | 2024-08-28 10:21 | P.PN ---
Subjective Progress Note Date: 08/28/24 This is a 73-year-old female who is status post right total knee arthroplasty. This is postoperative day #2 and patient is seen and evaluated at bedside today. Patient states that her pain is well-controlled. Patient complains of a headache today and states that she gets them frequently. Per nursing, the patient is tolerating food and has been doing well. Objective - Vital Signs Vital signs: Vital Signs Temp 98.2 F 08/28/24 07:28 Pulse 91 08/28/24 07:28 Resp 16 08/28/24 07:28 BP 144/73 08/28/24 07:28 Pulse Ox 93 L 08/28/24 07:28 FiO2 Intake & Output 08/27/24 08/28/24 08/28/24 18:59 06:59 18:59 Intake Total 980 Balance 980 Intake: Intake, IV Titration 500 Amount Magnesium Sulfate-D5w Pmx 200 1 gm In Dextrose/Water 1 100ml.bag @ 100 mls/hr IVPB Q1H [facility] Rx#: [id number] Sodium Chloride 0.9% 1, 300 000 ml @ 65 mls/hr IV . [id number] [facility] Rx#:[id number] Oral 480 Other: Voiding Method Toilet # Voids 1 3 - Exam Vital signs are stable. Patient is in no acute distress and is alert and oriented 3. Calf is soft and nontender to palpation. Dressing is clean, dry, and intact. Patient has full foot and ankle motion without pain or difficulty. Sensation intact. Neurovascular status and circulatory status are intact. - Labs CBC & Chem 7: 08/27/24 02:57 08/27/24 02:57 Assessment and Plan (1) Osteoarthritis of right knee Current Visit: Yes Status: Acute Code(s): M17.11 - UNILATERAL PRIMARY OSTEOARTHRITIS, RIGHT KNEE SNOMED Code(s): 170154089948509 (2) Status post total right knee replacement Current Visit: Yes Status: Acute Code(s): Z96.651 - PRESENCE OF RIGHT ARTIFICIAL KNEE JOINT SNOMED Code(s): 6650962210261 Plan: #1 Continue with routine postoperative care and pain control, leave dressing in place for 7 days. #2 Anticoagulation with aspirin. #3 Physical therapy today. #4 Appreciate input from internal medicine. #5 Anticipate discharge home with home care or to ECF in the next 24-48 hours.
--- NOTE | 2024-08-28 14:30 | P.PN ---
Subjective Progress Note Date: 08/28/24 - Reason for Consult Consult date: 08/26/24 Medical management, status post right total knee arthroplasty - History of Present Illness This is a pleasant 73-year-old female who was admitted with orthopedic surgery status post right total knee arthroplasty this morning. Patient reports she follows with Dr. Lin in the outpatient setting with a past medical history of GERD, hyperlipidemia, hypertension, osteoarthritis, enlarged right kidney, IBS, mentally challenged, anxiety. Patient reports that he did undergo presurgical clearance prior to hospitalization here. On exam patient is in the postop period currently on 2 L via nasal cannula although oxygen saturations are 99% and reports does not wear oxygen outpatient. Patient denies any shortness of breath. Wean as tolerated and would recommend incentive spirometer use at least 10 times every hour while awake. Will follow-up on repeat labs for further evaluation. Home medications reviewed and resumed as appropriate. Family at the bedside with concerns of discharge planning and was explained that we will be waiting for PT/OT therapy evaluation to assess her functionality prior to determining if she will be going home with home care and/or the possible need for ECF. Case management is consulted and pending. 08/27/2024 Patient is seen in follow-up today with no acute overnight issues. Patient reports her pain is moderate although is sitting up in the chair and worked with physical therapy. Patient has reported to walking at least 3 times. Patient with some nausea likely secondary to pain medications and will continue with supportive care. Plan is for patient to go to ECF for continued strength mobility with case management following. Patient is afebrile with no reports of chest pain or shortness of breath. Patient is medically stable once cleared by orthopedics. 08/28/2024 Patient is seen in follow-up today has been working with physical therapy although continues with some weakness. Patient does have a caregiver who lives with her but has limitations as well including using a cane to ambulate and perform ADLs and they are concerned with her returning home and having increased risk for falls. Case management is following working on insurance authorization and currently pending at this time. Patient is afebrile with no reports of ches t pain or shortness of breath. Received a call from her primary urologist reporting she had some Klebsiella in the urine on a previous urine culture last week and should have been on antibiotics. Awaiting medical records to verify cultures and sensitivities. Patient is denying any pain, burning, frequency although caregiver reports she frequently has these infections. Review of systems: Constitutional: No reports of fatigue, fever, or chills Cardiovascular: No reports of chest pain or palpitations Respiratory: No reports of shortness of breath or cough GI: No reports of nausea, vomiting, or diarrhea : No reports of dysuria or retention Neurovascular: reports of generalized weakness and some right knee discomfort All medications have been reviewed The rest of the 14-point review of systems is negative. PHYSICAL EXAMINATION: GENERAL: The patient is alert and oriented x3, not in any acute distress. Well developed, well nourished. Mentally delayed HEENT: Pupils are round and equally reacting to light. EOMI. No scleral icterus. No conjunctival pallor. Normocephalic, atraumatic. No pharyngeal erythema. No thyromegaly. CARDIOVASCULAR: S1 and S2 present. No murmurs, rubs, or gallops. PULMONARY: Diminished breath sounds bilaterally otherwise chest is clear to auscultation, no wheezing or crackles. ABDOMEN: Soft, nontender, non-distended, normoactive bowel sounds. No palpable organomegaly. MUSCULOSKELETAL: No joint swelling or deformity. EXTREMITIES: No cyanosis, clubbing, or pedal edema. Right knee surgical dressing is dry and intact with some minimal swelling noted NEUROLOGICAL: Gross neurological examination did not reveal any focal deficits. Diffusely weak SKIN: No rashes. Assessment: Status post right total knee arthroplasty History of GERD Hyperlipidemia Hypertension Osteoarthritis Renal disease with an enlarged right kidney History of recurrent UTIs and was evaluated by her primary urologist approximately 1-1/2 weeks ago and noted to have Klebsiella in the urine and was prescribed Bactrim although did not take as per caregiver did not receive the phone call until patient was here having surgery History of IBS Mentally challenged History of anxiety GI prophylaxis DVT prophylaxis Full code Plan: Patient was admitted under orthopedic status post right total knee arthroplasty. Patient is working with physical therapy and recommend daily. Patients caregiver is concerned with caring for her in the home after the surgery as she also uses a cane for her chronic comorbidities and concern with patient falling and being unable to help her up. Patient would benefit from some continued ongoing PT/OT therapy at [facility] postoperatively on discharge Patient has been instructed to continue with incentive spirometer use at least 10 times every hour while awake Home medications reviewed and resumed as appropriate. Resume blood pressure medication once blood pressures have improved Patient working with PT/OT therapy with plans on going to ECF and case management following, currently awaiting insurance authorization We will continue to follow with orthopedics during hospitalization. Thank you kindly for this consultation. The impression and plan of care has been dictated by Fabby Archer, Nurse Practitioner as directed. Dr. Vanessa MD I have performed a history and examination and MDM of this patient, discussed the same with the dictator, and agree with the dictator's assessment and plan as written ,documented as a scribe. Based on total visit time, I have performed more than 50% of the visit. Objective - Vital Signs Vital signs: Vital Signs Temp 98.2 F 08/28/24 07:28 Pulse 91 08/28/24 07:28 Resp 16 08/28/24 07:28 BP 144/73 08/28/24 07:28 Pulse Ox 93 L 08/28/24 07:28 FiO2 Intake & Output 08/27/24 08/28/24 08/28/24 18:59 06:59 18:59 Intake Total 980 Balance 980 Intake: Intake, IV Titration 500 Amount Magnesium Sulfate-D5w Pmx 200 1 gm In Dextrose/Water 1 100ml.bag @ 100 mls/hr IVPB Q1H [facility] Rx#: [id number] Sodium Chloride 0.9% 1, 300 000 ml @ 65 mls/hr IV . [id number] [facility] Rx#:[id number] Oral 480 Other: Voiding Method Toilet # Voids 1 3 - Labs CBC & Chem 7: 08/27/24 02:57 08/27/24 02:57
[2024-08-29 10:35] LABS: HCT 28.9 % (37.2-46.3); HGB 8.9 g/dL (12.0-15.0); MCHC 30.8 g/dL (32.0-37.0); MCV 90.9 FL (80.0-97.0); Mean Platelet Volume 11.4 FL (9.5-12.2); NRBC Per 100 WBC 0 X 10*3/uL (0.00-0.01); Platelet Count 218 X 10*3/uL (140-440); RBC 3.18 X 10*6/uL (4.10-5.20); RDW 15.3 % (11.5-14.5); WBC 5.72 X 10*3/uL (4.50-10.00)
[2024-08-29 10:36] LABS: Basophils # (A) 0.03 X 10*3/uL (0.00-0.10); Basophils % (A) 0.5 %; Eosinophils # (A) 0.18 X 10*3/uL (0.04-0.35); Eosinophils % (A) 3.1 %; Lymphocytes # (A) 1.26 X 10*3/uL (0.90-5.00); Monocytes # (A) 0.52 X 10*3/uL (0.20-1.00); Monocytes % (A) 9.1 %; Neutrophils # (A) 3.72 X 10*3/uL (1.80-7.70); Neutrophils % (A) 65.1 %
--- NOTE | 2024-08-29 13:34 | P.PN ---
Subjective Progress Note Date: 08/29/24 This is a 73-year-old female who is status post right total knee arthroplasty. This is postoperative day #3 and patient is seen and evaluated at bedside today. Patient states that her pain is well-controlled and she did well with physical therapy today. . Objective - Vital Signs Vital signs: Vital Signs Temp 98.8 F 08/29/24 08:00 Pulse 80 08/29/24 08:00 Resp 17 08/29/24 08:00 BP 147/80 08/29/24 08:00 Pulse Ox 93 L 08/29/24 08:00 FiO2 Intake & Output 08/28/24 08/29/24 08/29/24 18:59 06:59 18:59 Intake Total 975 200 Balance 975 200 Intake: Intake, IV Titration 0 Amount Sodium Chloride 0.9% 1, 0 000 ml @ 65 mls/hr IV . [id number] [facility] Rx#:[id number] Oral 975 200 Other: Voiding Method Toilet # Voids 3 2 # Bowel Movements 1 - Exam Vital signs are stable. Patient is in no acute distress and is alert and oriented 3. Calf is soft and nontender to palpation. Dressing is clean, dry, and intact. Patient has full foot and ankle motion without pain or difficulty. Sensation intact. Neurovascular status and circulatory status are intact. - Labs CBC & Chem 7: 08/29/24 03:52 08/27/24 02:57 Labs: Abnormal Lab Results - Last 24 Hours (Table) 08/29/24 Range/Units 03:52 RBC 3.18 L (4.10-5.20) X 10*6/uL Hgb 8.9 L (12.0-15.0) g/dL Hct 28.9 L (37.2-46.3) % MCHC 30.8 L (32.0-37.0) g/dL RDW 15.3 H (11.5-14.5) % Assessment and Plan (1) Osteoarthritis of right knee Status: Acute Code(s): M17.11 - UNILATERAL PRIMARY OSTEOARTHRITIS, RIGHT KNEE SNOMED Code(s): 816766584678097 (2) Status post total right knee replacement Status: Acute Code(s): Z96.651 - PRESENCE OF RIGHT ARTIFICIAL KNEE JOINT SNOMED Code(s): 1816091226095 Plan: #1 Continue with routine postoperative care and pain control, leave dressing in place for 7 days. #2 Anticoagulation with aspirin. #3 Physical therapy today. #4 Appreciate input from internal medicine. #5 Anticipate discharge home with home care or to ECF in the next 24-48 hours.
[2024-08-29] MEDS: HYDROcodone/APAP 5-325MG 1 EACH TAB PO PRN (15:37)
[2024-08-29 16:06] VITALS: RESP 16
--- NOTE | 2024-08-30 05:02 | P.PN ---
Subjective Progress Note Date: 08/29/24 - Reason for Consult Consult date: 08/26/24 Medical management, status post right total knee arthroplasty - History of Present Illness This is a pleasant 73-year-old female who was admitted with orthopedic surgery status post right total knee arthroplasty this morning. Patient reports she follows with Dr. Lin in the outpatient setting with a past medical history of GERD, hyperlipidemia, hypertension, osteoarthritis, enlarged right kidney, IBS, mentally challenged, anxiety. Patient reports that he did undergo presurgical clearance prior to hospitalization here. On exam patient is in the postop period currently on 2 L via nasal cannula although oxygen saturations are 99% and reports does not wear oxygen outpatient. Patient denies any shortness of breath. Wean as tolerated and would recommend incentive spirometer use at least 10 times every hour while awake. Will follow-up on repeat labs for further evaluation. Home medications reviewed and resumed as appropriate. Family at the bedside with concerns of discharge planning and was explained that we will be waiting for PT/OT therapy evaluation to assess her functionality prior to determining if she will be going home with home care and/or the possible need for ECF. Case management is consulted and pending. 08/27/2024 Patient is seen in follow-up today with no acute overnight issues. Patient reports her pain is moderate although is sitting up in the chair and worked with physical therapy. Patient has reported to walking at least 3 times. Patient with some nausea likely secondary to pain medications and will continue with supportive care. Plan is for patient to go to ECF for continued strength mobility with case management following. Patient is afebrile with no reports of chest pain or shortness of breath. Patient is medically stable once cleared by orthopedics. 08/28/2024 Patient is seen in follow-up today has been working with physical therapy although continues with some weakness. Patient does have a caregiver who lives with her but has limitations as well including using a cane to ambulate and perform ADLs and they are concerned with her returning home and having increased risk for falls. Case management is following working on insurance authorization and currently pending at this time. Patient is afebrile with no reports of ches t pain or shortness of breath. Received a call from her primary urologist reporting she had some Klebsiella in the urine on a previous urine culture last week and should have been on antibiotics. Awaiting medical records to verify cultures and sensitivities. Patient is denying any pain, burning, frequency although caregiver reports she frequently has these infections. 08/29/2024 Patient is seen in follow-up today working with physical therapy and per case management insurance authorization has been denied requesting a peer to peer which is to be done before noon tomorrow to determine if patient is appropriate for [facility]. Patient is afebrile with no reported chest pain or shortne ss of breath. No further reports of nausea and patient is tolerating diet. Recommend PT/OT therapy daily and also discussed with case management in the event patient will be going home. Home care will be arranged. Review of systems: Constitutional: No reports of fatigue, fever, or chills Cardiovascular: No reports of chest pain or palpitations Respiratory: No reports of shortness of breath or cough GI: No reports of nausea, vomiting, or diarrhea : No reports of dysuria or retention Neurovascular: reports of generalized weakness and some right knee discomfort All medications have been reviewed The rest of the 14-point review of systems is negative. PHYSICAL EXAMINATION: GENERAL: The patient is alert and oriented x3, not in any acute distress. Well developed, well nourished. Mentally delayed HEENT: Pupils are round and equally reacting to light. EOMI. No scleral icterus. No conjunctival pallor. Normocephalic, atraumatic. No pharyngeal erythema. No thyromegaly. CARDIOVASCULAR: S1 and S2 present. No murmurs, rubs, or gallops. PULMONARY: Diminished breath sounds bilaterally otherwise chest is clear to auscultation, no wheezing or crackles. ABDOMEN: Soft, nontender, non-distended, normoactive bowel sounds. No palpable organomegaly. MUSCULOSKELETAL: No joint swelling or deformity. EXTREMITIES: No cyanosis, clubbing, or pedal edema. Right knee surgical dressing is dry and intact with some minimal swelling noted NEUROLOGICAL: Gross neurological examination did not reveal any focal deficits. Diffusely weak SKIN: No rashes. Assessment: Status post right total knee arthroplasty History of GERD Hyperlipidemia Hypertension Osteoarthritis Renal disease with an enlarged right kidney History of recurrent UTIs and was evaluated by her primary urologist approximately 1-1/2 weeks ago and noted to have Klebsiella in the urine and was prescribed Bactrim although did not take as per caregiver did not receive the phone call until patient was here having surgery History of IBS Mentally challenged History of anxiety GI prophylaxis DVT prophylaxis Full code Plan: Patient was admitted under orthopedic status post right total knee arthroplasty. Patient is working with physical therapy and recommend daily. Patients caregiver is concerned with caring for her in the home after the surgery as she also uses a cane for her chronic comorbidities and concern with patient falling and being unable to help her up. Patient would benefit from some continued ongoing PT/OT therapy at ECF postoperatively on discharge. Insurance has denied requesting a peer to peer which is to be done before 08/30/2024 Patient has been instructed to continue with incentive spirometer use at least 10 times every hour while awake Home medications reviewed and resumed as appropriate. Resume blood pressure medication once blood pressures have improved Patient working with PT/OT therapy with plans on going to ECF and case management following, if [id number] is denied patient will be arranged for outpatient with home care per case management We will continue to follow with orthopedics during hospitalization. Thank you kindly for this consultation. The impression and plan of care has been dictated by Fabby Archer, Nurse Practitioner as directed. Dr. Vanessa MD I have performed a history and examination and MDM of this patient, discussed the same with the dictator, and agree with the dictator's assessment and plan as written ,documented as a scribe. Based on total visit time, I have performed more than 50% of the visit. Objective - Vital Signs Vital signs: Vital Signs Temp 98.8 F 08/29/24 08:00 Pulse 80 08/29/24 08:00 Resp 17 08/29/24 08:00 BP 147/80 08/29/24 08:00 Pulse Ox 93 L 08/29/24 08:00 FiO2 Intake & Output 08/28/24 08/29/24 08/29/24 18:59 06:59 18:59 Intake Total 975 200 Balance 975 200 Intake: Intake, IV Titration 0 Amount Sodium Chloride 0.9% 1, 0 000 ml @ 65 mls/hr IV . [id number] [facility] Rx#:[id number] Oral 975 200 Other: Voiding Method Toilet # Voids 3 2 # Bowel Movements 1 - Labs CBC & Chem 7: 08/29/24 03:52 08/27/24 02:57 Labs: Abnormal Lab Results - Last 24 Hours (Table) 08/29/24 Range/Units 03:52 RBC 3.18 L (4.10-5.20) X 10*6/uL Hgb 8.9 L (12.0-15.0) g/dL Hct 28.9 L (37.2-46.3) % MCHC 30.8 L (32.0-37.0) g/dL RDW 15.3 H (11.5-14.5) %
--- NOTE | 2024-08-30 09:10 | P.DS ---
Providers Attending physician: Kj García Consults: 08/26/24 09:01 Consult Physician Routine Consulting Provider: Russell Lin Reason/Comments: medical management Do you want consulting provider notified?: Yes Primary care physician: Russell Lin [facility] Course: This is a 73-year-old patient, with past medical history of severe right knee osteoarthritis, who failed nonsurgical conservative management. On 08/26/2024 the patient presented to the [facility] pre-op department for scheduled right total knee arthroplasty with Dr. García. The patient tolerated the procedure well. The patient was transferred to the orthopedic floor. The patient had no acute events over night. The patient's pain has been well-controlled. Patient was examined at bedside. Patient is resting comfortably in bed. No apparent distress. They are awake, alert and able to answer questions. Inspection: The surgical dressing is intact, there is no drainage or strikethrough. The skin surrounding the dressing is free of erythema. There is mild swelling in the operative thigh. Palpation: The operative calf is soft to compression. No calf tenderness. Neurovascular: Operative femoral nerve function is intact. The patient is able to actively plantarflex and dorsiflex their operative ankle and toes. Operative extremity sensation is intact to light touch throughout. Their operative foot appears well perfused, palpable dorsalis pedis pulse, and capillary refill under 2 seconds. Patient worked with physical therapy and it was determined they could discharge home. Plan to discharge home today. Plan follow up in two weeks in our office. Please see med rec for a list of accurate medications. Assessment: Status post right total knee arthroplasty for severe right knee osteoarthritis Right knee pain Plan - Discharge Summary Discharge Rx Participant: No New Discharge Prescriptions: New Aspirin 325 mg PO BID #60 tab Sennosides [Senokot] 2 tab PO DAILY PRN #60 tablet PRN Reason: Constipation Ondansetron Odt [Zofran Odt] 1 tab PO Q8HR PRN #10 tab PRN Reason: Nausea HYDROcodone/APAP 5-325MG [Ludlow 5-325] 1 - 2 tab PO Q6HR PRN #32 tab PRN Reason: Pain No Action Aspirin 81 mg PO DAILY Sertraline HCl [Zoloft] 50 mg PO DAILY lisinopriL [Zestril] 5 mg PO DAILY Dicyclomine [Bentyl] 20 mg PO AC-TID risperiDONE [RisperDAL] 2 mg PO HS Simvastatin [Zocor] 10 mg PO HS Omeprazole 80 mg PO DAILY Multivit-Min/Iron/Folic/Lutein [Centrum Silver Women Tablet] 1 tab PO DAILY Cholecalciferol (Vitamin D3) [Vitamin D3 (5000 Iu)] 125 mcg PO DAILY risperiDONE [RisperDAL] 1.5 tab PO DAILY Mirabegron [Myrbetriq] 25 mg PO DAILY Acetaminophen Tab [Tylenol] 650 mg PO Q6H PRN PRN Reason: Pain Ondansetron Odt [Zofran ODT] 4 mg PO Q8HR PRN PRN Reason: Nausea Lipase/Protease/Amylase [[place] De Guzman 24,000 Unit Capsule] 24,000 units PO 1200,1700,2200 ALPRAZolam [Xanax] 0.5 mg PO BID@0800,1200 #20 tab Gas Relief Pill (Unk) 1 dose PO DAILY Anti Diarrheal Powder 1 scoop PO DAILY PRN PRN Reason: loose stools Discharge Medication List Aspirin 81 mg PO DAILY 02/05/18 [History] Dicyclomine [Bentyl] 20 mg PO AC-TID 02/05/18 [History] Sertraline HCl [Zoloft] 50 mg PO DAILY 02/05/18 [History] lisinopriL [Zestril] 5 mg PO DAILY 02/05/18 [History] Cholecalciferol (Vitamin D3) [Vitamin D3 (5000 Iu)] 125 mcg PO DAILY 02/11/20 [History] Multivit-Min/Iron/Folic/Lutein [Centrum Silver Women Tablet] 1 tab PO DAILY 02/11/20 [History] Omeprazole 80 mg PO DAILY 02/11/20 [History] Simvastatin [Zocor] 10 mg PO HS 02/11/20 [History] risperiDONE [RisperDAL] 2 mg PO HS 02/11/20 [History] risperiDONE [RisperDAL] 1.5 tab PO DAILY 04/13/20 [History] Acetaminophen Tab [Tylenol] 650 mg PO Q6H PRN 03/18/24 [History] Lipase/Protease/Amylase [Creperla Dr 24,000 Unit Capsule] 24,000 units PO 1200,1700,2200 03/18/24 [History] Ondansetron Odt [Zofran ODT] 4 mg PO Q8HR PRN 03/18/24 [History] ALPRAZolam [Xanax] 0.5 mg PO BID@0800,1200 #20 tab 03/22/24 [Rx] Anti Diarrheal Powder 1 scoop PO DAILY PRN 08/22/24 [History] Gas Relief Pill (Unk) 1 dose PO DAILY 08/22/24 [History] Mirabegron [Myrbetriq] 25 mg PO DAILY 08/22/24 [History] Aspirin 325 mg PO BID #60 tab 08/26/24 [Rx] Sennosides [Senokot] 2 tab PO DAILY PRN #60 tablet 08/26/24 [Rx] Ondansetron Odt [Zofran Odt] 1 tab PO Q8HR PRN #10 tab 08/28/24 [Rx] HYDROcodone/APAP 5-325MG [Ludlow 5-325] 1 - 2 tab PO Q6HR PRN #32 tab 08/29/24 [Rx] Follow up Appointment(s)/Referral(s): Kj García DO [Doctor of Osteopathic Medicine] - 09/11/24 2:00 pm Activity/Diet/Wound Care/Special Instructions: Weightbearing as tolerated with a walker. Leave dressing intact. Dressing may be removed by home care nurse or by patient in 7 days. Then change dressing twice daily until follow up. May shower with initial dressing intact and after removal. If dressing become saturated, please remove. Recommend use of compression stockings daily until follow up to help prevent swelling and blood clots. May remove at night before sleeping. Please take aspirin 325mg twice daily for 30 days to prevent blood clots. Please follow up with [facility] and call with any questions or concerns, . Discharge Disposition: HOME WITH HOME HEALTH SERVICES
[2024-08-30 13:38] VITALS: BP 125/69; PULSE 88; TEMP 97.8
--- NOTE | 2024-08-31 07:08 | P.PN ---
Subjective Progress Note Date: 08/30/24 - Reason for Consult Consult date: 08/26/24 Medical management, status post right total knee arthroplasty - History of Present Illness This is a pleasant 73-year-old female who was admitted with orthopedic surgery status post right total knee arthroplasty this morning. Patient reports she follows with Dr. Lin in the outpatient setting with a past medical history of GERD, hyperlipidemia, hypertension, osteoarthritis, enlarged right kidney, IBS, mentally challenged, anxiety. Patient reports that he did undergo presurgical clearance prior to hospitalization here. On exam patient is in the postop period currently on 2 L via nasal cannula although oxygen saturations are 99% and reports does not wear oxygen outpatient. Patient denies any shortness of breath. Wean as tolerated and would recommend incentive spirometer use at least 10 times every hour while awake. Will follow-up on repeat labs for further evaluation. Home medications reviewed and resumed as appropriate. Family at the bedside with concerns of discharge planning and was explained that we will be waiting for PT/OT therapy evaluation to assess her functionality prior to determining if she will be going home with home care and/or the possible need for ECF. Case management is consulted and pending. 08/27/2024 Patient is seen in follow-up today with no acute overnight issues. Patient reports her pain is moderate although is sitting up in the chair and worked with physical therapy. Patient has reported to walking at least 3 times. Patient with some nausea likely secondary to pain medications and will continue with supportive care. Plan is for patient to go to ECF for continued strength mobility with case management following. Patient is afebrile with no reports of chest pain or shortness of breath. Patient is medically stable once cleared by orthopedics. 08/28/2024 Patient is seen in follow-up today has been working with physical therapy although continues with some weakness. Patient does have a caregiver who lives with her but has limitations as well including using a cane to ambulate and perform ADLs and they are concerned with her returning home and having increased risk for falls. Case management is following working on insurance authorization and currently pending at this time. Patient is afebrile with no reports of ches t pain or shortness of breath. Received a call from her primary urologist reporting she had some Klebsiella in the urine on a previous urine culture last week and should have been on antibiotics. Awaiting medical records to verify cultures and sensitivities. Patient is denying any pain, burning, frequency although caregiver reports she frequently has these infections. 08/29/2024 Patient is seen in follow-up today working with physical therapy and per case management insurance authorization has been denied requesting a peer to peer which is to be done before noon tomorrow to determine if patient is appropriate for fpc. Patient is afebrile with no reported chest pain or shortne ss of breath. No further reports of nausea and patient is tolerating diet. Recommend PT/OT therapy daily and also discussed with case management in the event patient will be going home. Home care will be arranged. 08/30/2024 Patient is seen in follow-up today and will be going home with home care. Insurance authorization denied rehab and patient does have a caregiver that lives with her. Patient is afebrile with no reports of chest pain or shortness of breath. Patient has been tolerating diet with no reported. Continue with orthopedic follow-up outpatient as well as urologist and will continue on a short course of Ceftin on discharge as patient had Klebsiella previously in the urine. Do not recommend Bactrim that was prescribed per urologist from [facility]. Review of systems: Constitutional: No reports of fatigue, fever, or chills Cardiovascular: No reports of chest pain or palpitations Respiratory: No reports of shortness of breath or cough GI: No reports of nausea, vomiting, or diarrhea : No reports of dysuria or retention Neurovascular: reports of generalized weakness and some right knee discomfort All medications have been reviewed The rest of the 14-point review of systems is negative. PHYSICAL EXAMINATION: GENERAL: The patient is alert and oriented x3, not in any acute distress. Well developed, well nourished. Mentally delayed HEENT: Pupils are round and equally reacting to light. EOMI. No scleral icterus. No conjunctival pallor. Normocephalic, atraumatic. No pharyngeal erythema. No thyromegaly. CARDIOVASCULAR: S1 and S2 present. No murmurs, rubs, or gallops. PULMONARY: Diminished breath sounds bilaterally otherwise chest is clear to auscultation, no wheezing or crackles. ABDOMEN: Soft, nontender, non-distended, normoactive bowel sounds. No palpable organomegaly. MUSCULOSKELETAL: No joint swelling or deformity. EXTREMITIES: No cyanosis, clubbing, or pedal edema. Right knee surgical dressing is dry and intact with some minimal swelling noted NEUROLOGICAL: Gross neurological examination did not reveal any focal deficits. Diffusely weak SKIN: No rashes. Assessment: Status post right total knee arthroplasty History of GERD Hyperlipidemia Hypertension Osteoarthritis Renal disease with an enlarged right kidney History of recurrent UTIs and was evaluated by her primary urologist approximately 1-1/2 weeks ago and noted to have Klebsiella in the urine and was prescribed Bactrim although did not take as per caregiver did not receive the phone call until patient was here having surgery History of IBS Mentally challenged History of anxiety GI prophylaxis DVT prophylaxis Full code Plan: Patient was admitted under orthopedic status post right total knee arthroplasty. Patient is working with physical therapy and recommend daily. Patients caregiver is concerned with caring for her in the home after the surgery as she also uses a cane for her chronic comorbidities and concern with patient falling and being unable to help her up. Patient would benefit from some continued ongoing PT/OT therapy at ECF postoperatively on discharge. Insurance has denied authorization for ECF and case management following arranging for home care and patient will be going home today Patient has been instructed to continue with incentive spirometer use at least 10 times every hour while awake Home medications reviewed and resumed as appropriate. Resume blood pressure medication Patient is medically stable once cleared by orthopedics We will continue to follow with orthopedics during hospitalization. Thank you kindly for this consultation. The impression and plan of care has been dictated by Fabby Archer, Nurse Practitioner as directed. Dr. Vanessa MD I have performed a history and examination and MDM of this patient, discussed the same with the dictator, and agree with the dictator's assessment and plan as written ,documented as a scribe. Based on total visit time, I have performed more than 50% of the visit. Objective - Vital Signs Vital signs: Vital Signs Temp 98.4 F 08/30/24 08:04 Pulse 96 08/30/24 08:04 Resp 16 08/30/24 08:04 BP 136/75 08/30/24 08:04 Pulse Ox 92 L 08/30/24 08:04 FiO2 Intake & Output 08/29/24 08/30/24 08/30/24 18:59 06:59 18:59 Intake Total 320 2160 Balance 320 2160 Intake: Oral 320 2160 Other: # Voids 3 7 - Labs CBC & Chem 7: 08/29/24 03:52 08/27/24 02:57 Labs: Abnormal Lab Results - Last 24 Hours (Table) 08/29/24 Range/Units 03:52 RBC 3.18 L (4.10-5.20) X 10*6/uL Hgb 8.9 L (12.0-15.0) g/dL Hct 28.9 L (37.2-46.3) % MCHC 30.8 L (32.0-37.0) g/dL RDW 15.3 H (11.5-14.5) %
== END 2024-08-30 17:08 | disposition home health service (06) ==
LOC: OR 05:34 → 4SSUR 08:54 → OR 08-30 17:08
PROVIDERS: ATTEND Orthopaedic Surgery
DX: M17.11 Unilateral primary osteoarthritis, right knee (principal); G89.18 Other acute postprocedural pain; M23.8X1 Other internal derangements of right knee; S83.281D Other tear of lateral meniscus, current injury, right knee, subsequent encounter; S83.421D Sprain of lateral collateral ligament of right knee, subsequent encounter; S83.241D Other tear of medial meniscus, current injury, right knee, subsequent encounter; I10 Essential (primary) hypertension; K21.9 Gastro-esophageal reflux disease without esophagitis; E78.5 Hyperlipidemia, unspecified; E03.9 Hypothyroidism, unspecified; K30 Functional dyspepsia; F32.A Depression, unspecified; K58.9 Irritable bowel syndrome, unspecified; F41.9 Anxiety disorder, unspecified; N28.81 Hypertrophy of kidney; Z79.82 Long term (current) use of aspirin; Z79.899 Other long term (current) drug therapy; F79 Unspecified intellectual disabilities
CPT/HCPCS: 27447; 97116; 97161; 97530; 97166; 64999; 64448; 80048; 83735; 85025; 73560; C1713; C1776; C1751; J2250; J0690 ×2; J2405 ×3; J3475; J2795

== ENCOUNTER → 2024-11-28 | Outpatient (CLI) | payer MEDICARE, OTHER ==
[2024-11-28 15:31] LABS: Basophils # (A) 0.03 X 10*3/uL (0.00-0.10); Basophils % (A) 0.9 %; Eosinophils # (A) 0.09 X 10*3/uL (0.04-0.35); Eosinophils % (A) 2.6 %; HGB 12.9 g/dL (12.0-15.0); Immature Grans, Automated 0 %; Lymphocytes # (A) 0.74 X 10*3/uL (0.90-5.00); Lymphocytes % (A) 21.2 %; MCHC 30.7 g/dL (32.0-37.0); MCV 88.1 FL (80.0-97.0); Monocytes # (A) 0.34 X 10*3/uL (0.20-1.00); Monocytes % (A) 9.7 %; NRBC Per 100 WBC 0 X 10*3/uL (0.00-0.01); Neutrophils # (A) 2.29 X 10*3/uL (1.80-7.70); Neutrophils % (A) 65.6 %; Platelet Count 244 X 10*3/uL (140-440); RBC 4.77 X 10*6/uL (4.10-5.20); RDW 13.5 % (11.5-14.5); WBC 3.49 X 10*3/uL (4.50-10.00)
[2024-11-28 16:23] LABS: BUN/Creat Ratio 25.89 Ratio (12.00-20.00); Blood Urea Nitrogen 23.3 mg/dL (9.0-27.0); Calcium 10.4 mg/dL (8.7-10.3); Carbon Dioxide 27.6 mmol/L (21.6-31.8); Chloride 101 mmol/L (96-109); Glucose 101 mg/dL (70-110); Potassium 5.6 mmol/L (3.5-5.5); Sodium 140 mmol/L (135-145)
[2024-11-28 18:18] LABS: Appearance,Urine Clear (Clear); Bilirubin,Urine Negative (Negative); Blood,Urine Negative (Negative); Color,Urine Yellow (Yellow); Ketones,Urine Negative (Negative); Nitrite,Urine Negative (Negative); Specific Gravity,Urine 1.015 (1.001-1.030); Urobilinogen,Urine 0.2 E.U./DL
[2024-11-28 18:58] LABS: Bacteria,Urine None Seen (None Seen)
== END | disposition home or self-care (01) ==
LOC: LABPAT 08:36
PROVIDERS: ATTEND Urology
DX: Z53.9 Procedure and treatment not carried out, unspecified reason (principal)
CPT/HCPCS: 80048; 81001; 85025; 87086

== ENCOUNTER → 2024-12-06 | Outpatient (CLI) | payer MEDICARE, OTHER ==
[2024-12-06 15:38] LABS: Anion Gap 9.3 mmol/L (4.00-12.00); Carbon Dioxide 28.7 mmol/L (21.6-31.8); Potassium 4.9 mmol/L (3.5-5.5)
== END | disposition home or self-care (01) ==
LOC: LABPAT 12:16
PROVIDERS: ATTEND Urology
DX: N13.30 Unspecified hydronephrosis (principal); N32.81 Overactive bladder
CPT/HCPCS: 80051